=== PATIENT | female | born 1995 | race Caucasian/White ===

== ENCOUNTER 2017-12-20 11:38 | Emergency (ER) | payer OTHER ==
[2017-12-20 11:48] VITALS: BMI 38.0
--- NOTE | 2017-12-20 12:57 | PDOC ---
History of Present Illness - General Chief Complaint: Vaginal Bleeding Stated Complaint: VAGINAL BLEEDING (12 WKS ) Time Seen by Provider: 12/20/17 12:53 History Source: Patient - History of Present Illness Timing/Duration: reports: other (yesterday) Past History - Past Medical History Allergies/Adverse Reactions: Allergies Allergy/AdvReac Type Severity Reaction Status Date / Time No Known Drug Allergies Allergy Mild Verified 12/20/17 11:48 seafood Allergy Intermediate Itching Uncoded 12/20/17 11:48 beans AdvReac Mild itching Uncoded 12/20/17 11:48 and body rash Home Medications: Ambulatory Orders Acetaminophen [Tylenol .Regular Strength -] 650 mg PO Q3H PRN #0 tablet Ferrous Sulfate [Feosol] 325 mg PO BID ud 04/02/15 Ibuprofen [Motrin -] 200 mg PO Q4H PRN #0 tablet 04/02/15 Vitamins (Sjr) - 1 tab PO DAILY tablet 04/02/15 95/Iron Fum/Folic/Dha [ + Dha Combo Pack] 1 each PO DAILY #30 combo..pkg 12/06/17 Asthma: No Cancer: No Cardiac Disorders: No COPD: No Diabetes: No HTN: No Seizures: No Thyroid Disease: No - Suicide/Smoking/Psychosocial Hx Smoking History: Never smoked Have you smoked in the past 12 months: No Hx Alcohol Use: No Drug/Substance Use Hx: No Substance Use Type: None Hx Substance Use Treatment: No Review of Systems - Review of Systems Constitutional: No: Fever ABD/GI: No: Nausea, Vomiting, Abdominal cramping : No: Dysuria, Flank Pain, Hematuria *Physical Exam - Vital Signs Last Vital Signs Temp Pulse Resp BP Pulse Ox 98.2 F 90 18 141/66 99 12/20/17 11:45 12/20/17 11:45 12/20/17 11:45 12/20/17 11:45 12/20/17 11:45 - Physical Exam General Appearance: Yes: Appropriately Dressed. No: Apparent Distress Neck: positive: Supple Respiratory/Chest: negative: Respiratory Distress Female Pelvic Exam: positive: normal external exam, cervical os closed, normal adnexa, other (trace light pinck discharge coming from os). negative: adnexal tenderness Gastrointestinal/Abdominal: positive: Soft. negative: Tender Musculoskeletal: negative: CVA Tenderness Integumentary: positive: Dry, Warm Neurologic: positive: Fully Oriented, Alert, Normal Mood/Affect Medical Decision Making - Medical Decision Making 12/20/17 12:56 22-year-old female, , ~ 12 weeks by dates, here with vaginal bleeding. Of note, patient was seen in ED 12/06 for abd pain and had US done revealing IUP ~ 10 w 4 d w/ beta >37K. O+. Patient states she noticed vaginal bleeding only on wiping since yesterday, otherwise no blood on sanitary napkin. No acute abdominal pain, dysuria, nausea, vomiting, fever or chills. Scheduled for first appointment tomorrow See exam 1st trimester vag bleed in confirmed IUP Stable w/ closed os and trace pink discharge -trend beta (~37K 12/06/17) -US -ua 12/20/17 15:59 Beta ~37, 800 K today, was ~37,900 on 12/06. Ultrasound demonstrates IUP at about 13 weeks with cardiac activity and possible placenta previa. UA with 1+ leuk esterase and 2 WBCs. Of note, urine culture 12/06 with no growth. Patient has no dysuria at this time. Will hold off on antibiotics. Patient given copy of labs and ultrasound report to take with her to her first appointment in the a.m. *DC/Admit/Observation/Transfer Diagnosis at time of Disposition: First-trimester bleeding - Discharge Dispostion Disposition: HOME Condition at time of disposition: Good - Referrals - Patient Instructions Additional Instructions: Your beta hCG today is about 37,000, about the same as it was on December 06 However your ultrasound reveals an intrauterine at about 13 weeks with cardiac activity. You are RH + and did not need rhogam Please follow-up with your OB appointment tomorrow as already scheduled - Post Discharge Activity
[2017-12-20 14:18] LABS: URINE APPEARANCE SLCLOUDY; URINE BILIRUBIN NEGATIVE (<2.0 mg/dL); URINE COLOR DKYELLOW; URINE GLUCOSE (UA) NEGATIVE (NEGATIVE); URINE KETONE NEGATIVE (NEGATIVE); URINE NITRITE NEGATIVE (NEGATIVE); URINE PROTEIN NEGATIVE (NEGATIVE)
[2017-12-20 14:21] LABS: URINE LEUK ESTERASE 1+ (NEGATIVE)
[2017-12-20 14:37] LABS: EPI CELLS FEW /HPF (FEW); URINE MUCUS RARE
--- NOTE | 2017-12-20 15:08 | PDOC ---
*Physical Exam - Vital Signs Last Vital Signs Temp Pulse Resp BP Pulse Ox 98.2 F 90 18 141/66 99 12/20/17 11:45 12/20/17 11:45 12/20/17 11:45 12/20/17 11:45 12/20/17 11:45 - Physical Exam Comments: 12/20/17 15:08 The patient was examined by [JOHNNY Gutierrez] under my direct supervision. I personally evaluated the patient. I concur with the above findings and the plan of care. ED Treatment Course - ADDITIONAL ORDERS Additional order review: Laboratory Results 12/20/17 12/20/17 12/20/17 14:03 13:21 13:21 Beta HCG, Quant 59256.2 Urine Color Dkyellow Cancelled Urine Appearance Slcloudy Cancelled Urine pH 6.0 Cancelled Ur Specific [place] 1.020 Cancelled Urine Protein Negative Cancelled Urine Glucose (UA) Negative Cancelled Urine Ketones Negative Cancelled Urine Blood 2+ H Cancelled Urine Nitrite Negative Cancelled Urine Bilirubin Negative Cancelled Urine Urobilinogen 2.0 H Cancelled Ur Leukocyte Esterase 1+ H Cancelled Urine WBC (Auto) 2 Urine RBC (Auto) 1 Ur Epithelial Cells Few Urine Mucus Rare - RADIOLOGY Radiology Studies Ordered: Category Date Time Status TRANSVAGINAL ULTRASOUND US [US] Routine Ultrasound 12/20/17 Taken
[2017-12-20 15:53] VITALS: BP 129/78; PULSE 70; TEMP 97.9
== END 2017-12-20 16:12 | disposition home or self-care (01) ==
LOC: JER 11:38
DX: O26.891 Other specified pregnancy related conditions, first trimester (principal); O20.8 Other hemorrhage in early pregnancy; Z3A.12 12 weeks gestation of pregnancy
CPT/HCPCS: 36415; 76801-TC; 76830-TC; 81003; 81015; 84702; 99281-25

== ENCOUNTER 2018-11-28 00:26 | Emergency (ER) | payer OTHER ==
[2018-11-28 01:33] VITALS: BMI 38.0
[2018-11-28] MEDS ORDERED: ACETAMINOPHEN 1000 MG/100 ML VIAL (NON FORMULARY) IVPB ONE (02:32)
[2018-11-28] MEDS ORDERED: SODIUM CHLORIDE 1,000 ML IV STA ×2 (02:32→04:24)
[2018-11-28] MEDS ORDERED: FAMOTIDINE 20 MG/50 ML IVPB 20 MG/50 ML MG IVPB ONE ×2 (02:35→03:45)
[2018-11-28] MEDS ORDERED: ONDANSETRON 4 MG/2 ML VIAL IVPB ONE (02:35)
[2018-11-28 03:39] LABS: BASO % 0.1 % (0-2.0); HEMATOCRIT 36.4 % (32.4-45.2); HEMOGLOBIN 12.2 GM/dL (10.7-15.3); LYMPH % 14.8 % (8-40); MCH 26.5 pg (25.7-33.7); MCHC 33.5 g/dl (32.0-36.0); MEAN CELL VOLUME 79.1 fl (80-96); MEAN PLT VOLUME 10.4 fl (7.5-11.1); MONO % 6.5 % (3.8-10.2); NEUT % 78.6 % (42.8-82.8); PLATELET COUNT 186 K/MM3 (134-434); RBC 4.61 M/mm3 (3.60-5.2); RDW 15.8 % (11.6-15.6); WHITE BLOOD COUNT 5.5 K/mm3 (4.0-10.0)
[2018-11-28 03:43] LABS: EPI CELLS 6.7 /HPF (0-5/HPF); HYALINE CASTS 9 /lpf (0-8); URINE APPEARANCE CLEAR; URINE BACTERIA 122.9 /hpf (NEGATIVE); URINE BILIRUBIN NEGATIVE (NEGATIVE); URINE COLOR DK YELLOW; URINE GLUCOSE (UA) NEGATIVE (NEGATIVE); URINE KETONE NEGATIVE (NEGATIVE); URINE LEUK ESTERASE 1+ (NEGATIVE); URINE NITRITE NEGATIVE (NEGATIVE); URINE PROTEIN TRACE (NEGATIVE); URINE RBC 2 /hpf (0-4); URINE WBC 7 /hpf (0-5)
[2018-11-28] MEDS ORDERED: ACETAMINOPHEN INJECTION 100 ML IVPB ONE (03:44)
[2018-11-28] MEDS ORDERED: ONDANSETRON 4 MG/2 ML VIAL ONE (03:44)
[2018-11-28 04:02] LABS: ALBUMIN 3.6 g/dl (3.4-5.0); CALCIUM 8.7 mg/dL (8.5-10.1); CREATININE 0.8 mg/dL (0.55-1.3); POTASSIUM 3.2 mmol/L (3.5-5.1); TOT PROT 8.2 g/dl (6.4-8.2)
--- NOTE | 2018-11-28 04:06 | PDOC ---
History of Present Illness - General Stated Complaint: GENERALIZED PAIN APPOX 2 MONTHS Time Seen by Provider: 11/28/18 01:30 History Source: Patient Exam Limitations: No Limitations - History of Present Illness Initial Comments: 11/28/18 06:55 23yo F presenting to ED with complaints of 2d of generalized body aches, fever, abdominal pain, nausea, vomiting and dysuria. Pt states symptoms started on Monday. She had spotting and went to a hospital where she was told everything was normal and discharged home. Pt states that last week she went to a clinic and found out she was 2m by LMP and has US scheduled in two days. She states that she has generalized muscle aches, and R sided abdominal pain. She has been nauseous and vomiting since Monday. She has also had fevers and dysuria since Monday. Denies cough, chest pain, sob, sore throat, neck stiffness, diarrhea, constipation, bloody stools, syncope, sick contacts, recent travel. PMD: PMH: none PSH: none Allergies: nkda Social: denies Past History - Past Medical History Allergies/Adverse Reactions: Allergies Allergy/AdvReac Type Severity Reaction Status Date / Time No Known Drug Allergies Allergy Mild Verified 11/28/18 01:33 seafood Allergy Intermediate Itching Uncoded 11/28/18 01:33 Home Medications: Ambulatory Orders Vitamins (Sjr) - 1 tab PO DAILY tablet 04/02/15 Cephalexin Monohydrate [Keflex -] 500 mg PO BID #10 capsule 11/28/18 Asthma: No Cancer: No Cardiac Disorders: No COPD: No Diabetes: No HTN: No Seizures: No Thyroid Disease: No - Suicide/Smoking/Psychosocial Hx Smoking History: Never smoked Have you smoked in the past 12 months: No Information on smoking cessation initiated: No Hx Alcohol Use: No Drug/Substance Use Hx: No Substance Use Type: None Hx Substance Use Treatment: No Review of Systems - Review of Systems Constitutional: Yes: Chills, Fever, Weakness HEENTM: No: Symptoms Reported Respiratory: No: Cough, Shortness of Breath Cardiac (ROS): No: Chest Pain, Lightheadedness, Palpitations, Syncope ABD/GI: Yes: See HPI, Nausea, Vomiting, Abdominal cramping. No: Constipated, Diarrhea : Yes: Burning, Dysuria. No: Frequency, Hematuria Musculoskeletal: Yes: Muscle Pain Integumentary: No: Symptoms Reported Neurological: No: Symptoms reported *Physical Exam - Vital Signs Last Vital Signs Temp Pulse Resp BP Pulse Ox 101.4 F H 108 H 19 132/69 99 11/28/18 00:30 11/28/18 00:30 11/28/18 00:30 11/28/18 00:30 11/28/18 00:30 - Physical Exam General Appearance: Yes: Nourished, Appropriately Dressed. No: Apparent Distress HEENT: positive: EOMI, JACK, Normal ENT Inspection, Pharynx Normal Neck: positive: Trachea midline. negative: Tender, Lymphadenopathy (R), Lymphadenopathy (L) Respiratory/Chest: positive: Lungs Clear, Normal Breath Sounds. negative: Crackles, Rales, Stridor, Wheezing Cardiovascular: positive: Regular Rhythm, Regular Rate, S1, S2. negative: Edema , JVD, Murmur Vascular Pulses: Dorsalis-Pedis (R): 2+, Doralis-Pedis (L): 2+ Gastrointestinal/Abdominal: positive: Normal Bowel Sounds, Soft, Tenderness (RUQ ). negative: Hernia, Mass Musculoskeletal: negative: CVA Tenderness Extremity: positive: Normal Capillary Refill. negative: Swelling, Calf Tenderness, Erythema Integumentary: positive: Normal Color, Dry, Warm Neurologic: positive: space sciences director II-XII NML intact, Fully Oriented, Alert, Normal Mood/ Affect, Normal Response, Motor Strength 5/5 ED Treatment Course - LABORATORY CBC & Chemistry Diagram: 11/28/18 03:11 11/28/18 03:11 - ADDITIONAL ORDERS Additional order review: Laboratory Results 11/28/18 11/28/18 11/28/18 03:11 03:11 03:11 PTT (Actin FS) 34.5 Sodium 135 L Potassium 3.2 L Chloride 102 Carbon Dioxide 23 Anion Gap 11 BUN 7.0 Creatinine 0.8 Est GFR (CKD-EPI)AfAm 121.29 Est GFR (CKD-EPI)NonAf 104.65 Random Glucose 106 Calcium 8.7 Total Bilirubin 1.0 AST 20 ALT 24 Alkaline Phosphatase 69 Troponin I Total Protein 8.2 Albumin 3.6 Urine Color Dk yellow Urine Appearance Clear Urine pH 6.0 Ur Specific [place] 1.011 Urine Protein Trace Urine Glucose (UA) Negative Urine Ketones Negative Urine Blood Negative Urine Nitrite Negative Urine Bilirubin Negative Urine Urobilinogen 1.0 Ur Leukocyte Esterase 1+ H Urine WBC (Auto) 7 Urine RBC (Auto) 2 Urine Casts (Auto) 9 U Epithel Cells (Auto) 6.7 Urine Bacteria (Auto) 122.9 11/28/18 03:11 PTT (Actin FS) Sodium Potassium Chloride Carbon Dioxide Anion Gap BUN Creatinine Est GFR (CKD-EPI)AfAm Est GFR (CKD-EPI)NonAf Random Glucose Calcium Total Bilirubin AST ALT Alkaline Phosphatase Troponin I < 0.02 Total Protein Albumin Urine Color Urine Appearance Urine pH Ur Specific [place] Urine Protein Urine Glucose (UA) Urine Ketones Urine Blood Urine Nitrite Urine Bilirubin Urine Urobilinogen Ur Leukocyte Esterase Urine WBC (Auto) Urine RBC (Auto) Urine Casts (Auto) U Epithel Cells (Auto) Urine Bacteria (Auto) 11/28/18 03:11 RBC 4.61 MCV 79.1 L MCHC 33.5 RDW 15.8 H D MPV 10.4 Neutrophils % 78.6 D Lymphocytes % 14.8 D Monocytes % 6.5 Eosinophils % 0.0 D Basophils % 0.1 - Medications Given in the ED: ED Medications Discontinued Medications Generic Name Dose Route Start Last Admin Trade Name Freq PRN Reason Stop Dose Admin Acetaminophen 1,000 mg 11/28/18 02:32 11/28/18 03:53 Ofirmev Injection - IVPB 11/28/18 02:33 1,000 mg ONCE ONE Administration Sodium Chloride 1,000 mls @ 1,000 mls/hr 11/28/18 02:32 11/28/18 03:53 Normal Saline - IV 11/28/18 03:31 1,000 mls/hr ASDIR STA Administration Famotidine/Sodium Chloride 20 mg in 50 mls @ 100 mls/hr 11/28/18 02:35 03:53 Pepcid 20 Mg Premixed Ivpb - IVPB 11/28/18 03:04 100 mls/hr ONCE ONE Administration Ondansetron HCl 4 mg 11/28/18 02:35 11/28/18 03:53 Zofran Injection IVPB 11/28/18 02:36 4 mg ONCE ONE Administration Medical Decision Making - Medical Decision Making 11/28/18 07:00 23yo F presenting to ED with complaints of 2d of generalized body aches, fever, abdominal pain, nausea, vomiting and dysuria. Pt states symptoms started on Monday. She had spotting and went to a hospital where she was told everything was normal and discharged home. Pt states that last week she went to a clinic and found out she was 2m by LMP and has US scheduled in two days. She states that she has generalized muscle aches, and R sided abdominal pain. She has been nauseous and vomiting since Monday. She has also had fevers and dysuria since Monday. Denies cough, chest pain, sob, sore throat, neck stiffness, diarrhea, constipation, bloody stools, syncope, sick contacts, recent travel. Vitals: febrile, tachcyardic PE: RUQ tenderness. no rebound. lungs clear, normal heart sounds. congested. Ddx includes but not limited to viral illness, uti/pyelo, cholecystitis, appendicitis, nephrolithaisis. pt has not had formal us. will perform pocus and order us for and ruq sono labs, cultures, ua, ucx, ekg, fluids, zofran, pepcid. labs show lac of 2.3. pt getting fluids. ua shows bacteruria. will treat with keflex pocus shows FHR at 164. Likely viral illness. pending morning sono. Concern for pyelo;will add ceftriaxone. Rx sent to pharmacy. Signed out to morning team. *DC/Admit/Observation/Transfer Diagnosis at time of Disposition: Fever Qualifiers: Fever type: unspecified Qualified Code(s): R50.9 - Fever, unspecified Qualifiers: Weeks of gestation: unspecified Qualified Code(s): Z34.90 - Encounter for supervision of normal , unspecified, unspecified trimester - Referrals Referrals: ON STAFF,NOT [Primary Care Provider] - - Patient Instructions - Post Discharge Activity
--- NOTE | 2018-11-28 04:11 | PDOC ---
Documentation entered by Carter Hernández SCRIBE, acting as scribe for Meche Donohue DO. Meche Donohue DO: This documentation has been prepared by the Edgar larry Elijah, SCRIBE, under my direction and personally reviewed by me in its entirety. I confirm that the documentation accurately reflects all work , treatment, procedures, and medical decision making performed by me. Attending Attestation - Resident Resident Name: Lisa Fuentes - ED Attending Attestation I have performed the following: I have examined & evaluated the patient, The case was reviewed & discussed with the resident, I agree w/resident's findings & plan - HPI HPI: 11/28/18 02:41 Patient is a 23 year old female with a significant past medical history of S/D who presents to the ED Fever, Body aches and Urinary symptoms. Patient was seen on Monday, discharged but her symptoms remained prompting the visit to the ED. Allergies: Seafood, Beans - Physicial Exam PE: 11/28/18 02:42 Agree with Resident's Exam. - Medical Decision Making 11/28/18 04:09 23-year-old female with right-sided abdominal pain Approximately 2 months gestational age Patient will be held for pelvic and right upper quadrant ultrasound in the morning Case will be signed out to
[2018-11-28 04:19] LABS: INR 1.24 (0.83-1.09); PROTHROMBIN TIME (PATIENT) 14.7 SEC (9.7-13.0)
[2018-11-28] MEDS ORDERED: CEPHALEXIN MONOHYDRATE 500 MG CAPSULE (UD) PO ONE (05:23)
[2018-11-28] MEDS ORDERED: CEPHALEXIN MONOHYDRATE 500 MG CAPSULE (UD) ONE (05:38)
[2018-11-28] MEDS ORDERED: CEFTRIAXONE 1 GM in DEXTROSE 5%-WATER - 100 ML IVPB ONE (07:05)
[2018-11-28] MEDS ORDERED: CEFTRIAXONE 0 GM/0 ML BAG ONE (08:03)
[2018-11-28] MEDS ORDERED: CEFTRIAXONE 1 GM/50 ML BAG ONE (08:17)
--- NOTE | 2018-11-28 08:36 | PDOC ---
*Physical Exam - Vital Signs Last Vital Signs Temp Pulse Resp BP Pulse Ox 101.4 F H 108 H 19 132/69 99 11/28/18 00:30 11/28/18 00:30 11/28/18 00:30 11/28/18 00:30 11/28/18 00:30 - Physical Exam Comments: 11/28/18 08:33 Patient endorsed to me by Dr. danielson. Patient is a 23-year-old female, , at 8 weeks gestation by LMP who presented with fever, generalized weakness, and suprapubic and right upper quadrant abdominal pain. CBC is within normal limit. CMP reveals no significant LFT or renal abnormalities. UA reveals 7 WBCs per high-power field. Urine culture obtained. IV ceftriaxone administered for suspected UTI. Transvaginal and right upper quadrant ultrasound obtained. Awaiting results. On my evaluation, patient has no abdominal tenderness, no CVA tenderness, is resting comfortably. Patient reports that she suffers from seasonal ALLERGIES and has no upper respiratory symptoms at this time outside of mild nasal congestion. 11/28/18 09:41 Patient reassessed. Patient is resting comfortably, afebrile, well-appearing, symptom-free. -related REVEALS AN IUP AT 13 WEEKS 5 DAYS WITH FH. RIGHT UPPER QUADRANT ULTRASOUND REVEALS HEPATOMEGALY LIKELY RELATED TO FATTY LIVER, NO EVIDENCE OF CHOLELITHIASIS OR HYDRONEPHROSIS. Pyelonephritis highly unlikely at this time. Will discharge with instructions to hydrate, take Keflex as instructed and return immediately for worsening symptoms. ED Treatment Course - LABORATORY CBC & Chemistry Diagram: 11/28/18 03:11 11/28/18 03:11 - ADDITIONAL ORDERS Additional order review: Laboratory Results 11/28/18 11/28/18 11/28/18 03:15 03:11 03:11 PT with INR 14.70 H INR 1.24 H PTT (Actin FS) Sodium Potassium Chloride Carbon Dioxide Anion Gap BUN Creatinine Est GFR (CKD-EPI)AfAm Est GFR (CKD-EPI)NonAf Random Glucose Lactic Acid 2.3 H* Calcium Total Bilirubin AST ALT Alkaline Phosphatase Troponin I Total Protein Albumin Lipase Beta HCG, Quant Urine Color Dk yellow Urine Appearance Clear Urine pH 6.0 Ur Specific [place] 1.011 Urine Protein Trace Urine Glucose (UA) Negative Urine Ketones Negative Urine Blood Negative Urine Nitrite Negative Urine Bilirubin Negative Urine Urobilinogen 1.0 Ur Leukocyte Esterase 1+ H Urine WBC (Auto) 7 Urine RBC (Auto) 2 Urine Casts (Auto) 9 U Epithel Cells (Auto) 6.7 Urine Bacteria (Auto) 122.9 11/28/18 11/28/18 11/28/18 03:11 03:11 03:11 PT with INR INR PTT (Actin FS) 34.5 Sodium 135 L Potassium 3.2 L Chloride 102 Carbon Dioxide 23 Anion Gap 11 BUN 7.0 Creatinine 0.8 Est GFR (CKD-EPI)AfAm 121.29 Est GFR (CKD-EPI)NonAf 104.65 Random Glucose 106 Lactic Acid Calcium 8.7 Total Bilirubin 1.0 AST 20 ALT 24 Alkaline Phosphatase 69 Troponin I < 0.02 Total Protein 8.2 Albumin 3.6 Lipase 128 Beta HCG, Quant 83965.1 Urine Color Urine Appearance Urine pH Ur Specific [place] Urine Protein Urine Glucose (UA) Urine Ketones Urine Blood Urine Nitrite Urine Bilirubin Urine Urobilinogen Ur Leukocyte Esterase Urine WBC (Auto) Urine RBC (Auto) Urine Casts (Auto) U Epithel Cells (Auto) Urine Bacteria (Auto) 11/28/18 03:11 RBC 4.61 MCV 79.1 L MCHC 33.5 RDW 15.8 H D MPV 10.4 Neutrophils % 78.6 D Lymphocytes % 14.8 D Monocytes % 6.5 Eosinophils % 0.0 D Basophils % 0.1 - Medications Given in the ED: ED Medications Discontinued Medications Generic Name Dose Route Start Last Admin Trade Name Freq PRN Reason Stop Dose Admin Acetaminophen 1,000 mg 11/28/18 02:32 11/28/18 03:53 Ofirmev Injection - IVPB 11/28/18 02:33 1,000 mg ONCE ONE Administration Cephalexin HCl 500 mg 11/28/18 05:23 11/28/18 05:41 Keflex - PO 11/28/18 05:24 500 mg ONCE ONE Administration Sodium Chloride 1,000 mls @ 1,000 mls/hr 11/28/18 02:32 11/28/18 03:53 Normal Saline - IV 11/28/18 03:31 1,000 mls/hr ASDIR STA Administration Famotidine/Sodium Chloride 20 mg in 50 mls @ 100 mls/hr 11/28/18 02:35 03:53 Pepcid 20 Mg Premixed Ivpb - IVPB 11/28/18 03:04 100 mls/hr ONCE ONE Administration Sodium Chloride 1,000 mls @ 1,000 mls/hr 11/28/18 04:24 11/28/18 05:02 Normal Saline - IV 11/28/18 05:23 1,000 mls/hr ASDIR STA Administration Ceftriaxone Sodium 1 gm/ 100 mls @ 200 mls/hr 11/28/18 07:05 11/28/18 08:00 Dextrose IVPB 11/28/18 07:34 200 mls/hr ONCE ONE Administration Protocol Ondansetron HCl 4 mg 11/28/18 02:35 11/28/18 03:53 Zofran Injection IVPB 11/28/18 02:36 4 mg ONCE ONE Administration *DC/Admit/Observation/Transfer Diagnosis at time of Disposition: Fever Qualifiers: Fever type: unspecified Qualified Code(s): R50.9 - Fever, unspecified Qualifiers: Weeks of gestation: unspecified Qualified Code(s): Z34.90 - Encounter for supervision of normal , unspecified, unspecified trimester Urinary tract infection Qualifiers: Urinary tract infection type: site unspecified Hematuria presence: without hematuria Qualified Code(s): N39.0 - Urinary tract infection, site not specified - Discharge Dispostion Disposition: HOME Condition at time of disposition: Stable - Prescriptions Prescriptions: Cephalexin Monohydrate [Keflex -] 500 mg PO BID #10 capsule - Referrals Referrals: ON STAFF,NOT [Primary Care Provider] - Court Jasso MD [Staff Physician] - - Patient Instructions Printed Discharge Instructions: DI for Fever (Symptom) -- Adult, Vaginal Bleeding During , DI for Urinary Tract Infection (UTI) - Post Discharge Activity
[2018-11-28 09:35] VITALS: BP 100/52; PULSE 73; TEMP 97.6
[2018-11-28] MEDS ORDERED: POTASSIUM CHLORIDE TABS 20 MEQ TABLET.ER (FP) PO ONE (09:40)
--- NOTE | 2018-11-28 14:39 | EKG ---
Test Reason : Blood Pressure : / mmHG Vent. Rate : 093 BPM Atrial Rate : 093 BPM P-R Int : 140 ms QRS Dur : 104 ms QT Int : 356 ms P-R-T Axes : 002 018 022 degrees QTc Int : 442 ms NORMAL SINUS RHYTHM NORMAL ECG NO PREVIOUS ECGS AVAILABLE Confirmed by JOSÉ HURTADO, ANN-MARIE ([id number]) on 11/28/2018 2:38:42 PM Referred By: DANII Confirmed By:ANN-MARIE KUMAR MD
== END 2018-11-28 10:06 | disposition home or self-care (01) ==
LOC: JER 00:26
PROC: 3E03329 Introduction of Other Anti-infective into Peripheral Vein, Percutaneous Approach (ICD-10-PCS; principal; 2018-11-28)
PROC: 3E033NZ Introduction of Analgesics, Hypnotics, Sedatives into Peripheral Vein, Percutaneous Approach (ICD-10-PCS; 2018-11-28)
PROC: 3E0337Z Introduction of Electrolytic and Water Balance Substance into Peripheral Vein, Percutaneous Approach (ICD-10-PCS; 2018-11-28)
PROC: 3E033GC Introduction of Other Therapeutic Substance into Peripheral Vein, Percutaneous Approach (ICD-10-PCS; 2018-11-28)
DX: Z34.90 Encounter for supervision of normal pregnancy, unspecified, unspecified trimester (principal); R50.9 Fever, unspecified; R00.0 Tachycardia, unspecified
CPT/HCPCS: 36415; 76700-TC; 76801-TC; 80053; 81003; 83605; 83690; 84484; 84702; 85025; 85610; 85730; 87040; 87077; 87086; 93005; 93010; 99283-25; J0131; J7030

== ENCOUNTER 2018-11-28 19:56 | Inpatient (IN) | payer OTHER ==
[2018-11-28] MEDS ORDERED: ACETAMINOPHEN 500 MG TABLET (FP) PO ONE (20:03)
--- NOTE | 2018-11-28 20:03 | PDOC ---
Rapid Medical Evaluation Time Seen by Provider: 11/28/18 20:01 Medical Evaluation: Allergies Allergy/AdvReac Type Severity Reaction Status Date / Time No Known Drug Allergies Allergy Mild Verified 11/28/18 01:33 seafood Allergy Intermediate Itching Uncoded 11/28/18 01:33 11/28/18 20:01 HPI: 12- 14 weeks gravid with fevers, chills, and vomiting PE: Alert in wheel chair ORDERS: Septic work up B quant Discharge Disposition - Diagnosis Fever - Referrals - Patient Instructions - Post Discharge Activity
[2018-11-28] MEDS ORDERED: ACETAMINOPHEN 1000 MG/100 ML VIAL (NON FORMULARY) IVPB ONE (20:04)
[2018-11-28] MEDS ORDERED: SODIUM CHLORIDE 1,000 ML IV STA ×3 (20:19→23:49)
[2018-11-28] MEDS ORDERED: ONDANSETRON 4 MG/2 ML VIAL IVPB ONE (20:19)
[2018-11-28] MEDS ORDERED: FAMOTIDINE 20 MG/50 ML IVPB 20 MG/50 ML MG IVPB ONE ×2 (20:31→23:05)
--- NOTE | 2018-11-28 20:42 | PDOC ---
History of Present Illness - General Chief Complaint: Pain Stated Complaint: 14 WKS /FEVER/VOMITING Time Seen by Provider: 11/28/18 20:01 History Source: Patient Exam Limitations: No Limitations - History of Present Illness Initial Comments: 11/28/18 20:35 23yo F at 13w by sonogram BIBA for fever and vomiting. Patient was seen here yesterday with UTI, improved symptomatically and given antibiotics to take for UTI. She went home and took a nap. Patient states she woke up at 4pm and went to go to the pharmacy to get her medications. She was told to eat something prior to taking the medication. Patient states that when she went to go eat she started vomiting, felt like someone punched her in the stomach, developed fever, headache and felt weak. She was feeling fine prior to eating. She had a normal bowel movement. She did not notice any spotting or leakage of fluid. She endorses fever, chills, abdominal pain, headache, back pain and she says her legs feel weak. PMD: Jung PMH: none PSH: none Allergies: nkda Past History - Past Medical History Allergies/Adverse Reactions: Allergies Allergy/AdvReac Type Severity Reaction Status Date / Time No Known Drug Allergies Allergy Mild Verified 11/28/18 20:24 seafood Allergy Intermediate Itching Uncoded 11/28/18 20:24 Home Medications: Ambulatory Orders Vitamins (Sjr) - 1 tab PO DAILY tablet 04/02/15 Cephalexin Monohydrate [Keflex -] 500 mg PO BID #10 capsule 11/28/18 Asthma: No Cancer: No Cardiac Disorders: No COPD: No Diabetes: No HTN: No Seizures: No Thyroid Disease: No - Suicide/Smoking/Psychosocial Hx Smoking History: Never smoked Have you smoked in the past 12 months: No Information on smoking cessation initiated: No Hx Alcohol Use: No Drug/Substance Use Hx: No Substance Use Type: None Hx Substance Use Treatment: No Review of Systems - Review of Systems Constitutional: Yes: Chills, Fever, Weakness HEENTM: Yes: Nose Congestion. No: Symptoms Reported Respiratory: No: Cough, Shortness of Breath, Productive cough Cardiac (ROS): No: Chest Pain, Lightheadedness ABD/GI: Yes: See HPI, Nausea, Vomiting, Abdominal cramping : Yes: Flank Pain. No: Burning, Dysuria, Frequency Musculoskeletal: Yes: See HPI Integumentary: No: Symptoms Reported Neurological: Yes: Headache. No: Numbness, Tingling, Weakness, Ataxia, Dizziness *Physical Exam - Vital Signs Last Vital Signs Temp Pulse Resp BP Pulse Ox 104.7 F H 155 H 25 H 101/62 100 11/28/18 20:01 11/28/18 20:01 11/28/18 20:01 11/28/18 20:01 11/28/18 20:01 - Physical Exam General Appearance: Yes: Severe Distress, Other (diaphoretic) HEENT: positive: EOMI, JACK, Pharynx Normal Neck: positive: Trachea midline, Supple. negative: Lymphadenopathy (R), Lymphadenopathy (L) Respiratory/Chest: positive: Lungs Clear, Normal Breath Sounds. negative: Crackles, Rales, Rhonchi, Stridor, Wheezing Cardiovascular: positive: Regular Rhythm, S1, S2, Tachycardia. negative: Edema , JVD, Murmur Vascular Pulses: Dorsalis-Pedis (R): 2+, Doralis-Pedis (L): 2+ Female Pelvic Exam: negative: CMT, adnexal tenderness Gastrointestinal/Abdominal: positive: Normal Bowel Sounds, Soft, Tenderness ( suprapubic). negative: Tender, Distended, Guarding, Rebound Musculoskeletal: positive: CVA Tenderness (R). negative: CVA Tenderness (L), Vertebral Tenderness Extremity: positive: Normal Capillary Refill. 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 Patient was seen here yesterday with normal workup, improved symptomatically and given antibiotics to take for asymptomatic bacteruria. She went home and took a nap. Patient states she woke up at 4pm and went to go to the pharmacy to get her medications. She was told to eat something prior to taking the medication. Patient states that when she went to go eat she started vomiting, felt like someone punched her in the stomach, developed fever, headache and felt weak. She was feeling fine prior to eating. She had a normal bowel movement. She did not notice any spotting or leakage of fluid. She endorses fever, chills, abdominal pain, chest pain, headache, back pain and she says her legs feel weak. Vitals: febrile, tachcyardic, saturating well on RA PE: diaphoretic, no meningeal signs, soft abdomen, lungs clear. negative brudzinski, negative kernig. no cmt or adnexal tenderness ddx includes but not limited to pyelonephritis, gastritis, appendicitis, meningitis, TOA/PID low suspicion for appendicitis given patient does not have rlq pain. seems to be suprapubic. low suspicion for meningitis given no meningeal signs. sepsis w/u started. iv fluids. WBC 2.7. no neutrophil count. labs wnl. normal kidney function. ua negative however pt was given antibiotics. pt has R flank tenderness and suprapubic pain. lactic elevated, pt getting fluids; 3L ordered in total -aztreonam, cefepime certified alcohol and drug counselor consulted, will follow patient. admitted and accpeted by hospitalist *DC/Admit/Observation/Transfer Diagnosis at time of Disposition: Fever Qualifiers: Fever type: unspecified Qualified Code(s): R50.9 - Fever, unspecified Pyelonephritis affecting Qualifiers: Trimester: second trimester Qualified Code(s): O23.02 - Infections of kidney in , second trimester - Discharge Dispostion Condition at time of disposition: Stable - Referrals - Patient Instructions - Post Discharge Activity
[2018-11-28] MEDS ORDERED: ACETAMINOPHEN INJECTION 100 ML IVPB ONE (20:44)
[2018-11-28] MEDS ORDERED: ONDANSETRON 4 MG/2 ML VIAL ONE (20:44)
[2018-11-28 21:21] LABS: BASO % 0.5 % (0-2.0); EOS % 0.2 % (0-4.5); HEMATOCRIT 36.2 % (32.4-45.2); HEMOGLOBIN 12.3 GM/dL (10.7-15.3); LYMPH % 23.5 % (8-40); MCH 26.7 pg (25.7-33.7); MCHC 33.8 g/dl (32.0-36.0); MEAN CELL VOLUME 78.9 fl (80-96); MEAN PLT VOLUME 10.2 fl (7.5-11.1); MONO % 2.1 % (3.8-10.2); NEUT % 73.7 % (42.8-82.8); PLATELET COUNT 158 K/MM3 (134-434); RBC 4.59 M/mm3 (3.60-5.2); RDW 16.4 % (11.6-15.6); WHITE BLOOD COUNT 2.7 K/mm3 (4.0-10.0)
[2018-11-28 21:38] LABS: ALBUMIN 3.7 g/dl (3.4-5.0); BLOOD UREA NITROGEN 6.2 mg/dL (7-18); CALCIUM 8.6 mg/dL (8.5-10.1); CREATININE 1.1 mg/dL (0.55-1.3); POTASSIUM 3.4 mmol/L (3.5-5.1); TOT PROT 8.1 g/dl (6.4-8.2)
[2018-11-28 21:40] LABS: INR 1.21 (0.83-1.09); PROTHROMBIN TIME (PATIENT) 14.3 SEC (9.7-13.0)
[2018-11-28 21:43] LABS: ACTIVATED PTT 26.9 SECONDS (25.2-36.5)
[2018-11-28 23:17] LABS: EPI CELLS 1.6 /HPF (0-5/HPF); HYALINE CASTS 6 /lpf (0-8); PH,URINE 5.5 (5.0-8.0); URINE APPEARANCE CLEAR; URINE BACTERIA 3.4 /hpf (NEGATIVE); URINE BILIRUBIN 1+ (NEGATIVE); URINE COLOR DK YELLOW; URINE GLUCOSE (UA) NEGATIVE (NEGATIVE); URINE KETONE TRACE (NEGATIVE); URINE LEUK ESTERASE NEGATIVE (NEGATIVE); URINE NITRITE NEGATIVE (NEGATIVE); URINE PROTEIN 2+ (NEGATIVE); URINE RBC 1 /hpf (0-4); URINE WBC 2 /hpf (0-5)
[2018-11-28] MEDS ORDERED: LACTATED RINGERS SOLUTION 1000 ML INFUS.BAG IV ONE (23:53)
[2018-11-29] MEDS ORDERED: AZTREONAM 1 GM VIAL (RESTRICTED TO ID) IVPB STA (00:22)
--- NOTE | 2018-11-29 00:26 | PDOC ---
Documentation entered by Rajeev Gates SCRIBE, acting as scribe for Carmen Garcia MD. Carmen Garcia MD: This documentation has been prepared by the Kody larry Daniel, SCRIBE, under my direction and personally reviewed by me in its entirety. I confirm that the documentation accurately reflects all work, treatment, procedures, and medical decision making performed by me. Attending Attestation - Resident Resident Name: GinaLisa - ED Attending Attestation I have performed the following: I have examined & evaluated the patient, The case was reviewed & discussed with the resident, I agree w/resident's findings & plan, Exceptions are as noted - HPI HPI: 11/28/18 21:11 The patient is a 23 year old female with no past medical history brought in today by EMS for evaluation of fever and vomiting. The patient is 13 weeks by ultrasound. The patient reports that she has had fever, nausea, and vomiting since monday (11/25/18) and was seen at another hospital on Monday and discharged. Patient was seen yesterday here, diagnosed with UTI. She was given ceftriaxone and was discharged after her symptoms improved with keflex. She states she felt well until she tried to eat this afternoon when she began to feel nauseous, weak and developed chills. She also noted pain to her suprapubic area as well as aches in her back. On arrival to ED, pt febrile to 104.7, tachycardic to 155. She reported a headache initially that was global, gradual onset but has since resolved. Denies dizziness, focal weakness/numbness, neck pain, blurry vision, rashes. Denies cp, sob. REports some dark urine and dysuria yesterday that improved today. Denies LE edema, rashes, coughing, sore throat, diarrhea. Allergies: NKDA - Physicial Exam PE: 11/28/18 23:47 GENERAL: Awake, alert, and fully oriented, in no acute distress. Non toxic HEAD: No signs of trauma EYES: PERRLA, EOMI, sclera anicteric, conjunctiva clear ENT: Auricles normal inspection, hearing grossly normal, nares patent, oropharynx clear without exudates. Moist mucosa NECK: Normal ROM, supple, no lymphadenopathy, JVD, or masses. Negative kernigs and and brudzinski's signs. LUNGS: Breath sounds equal, clear to auscultation bilaterally. No wheezes, and no crackles HEART: Regular rate and rhythm, normal S1 and S2, no murmurs, rubs or gallops ABDOMEN: Soft, suprapubic ttp, no epigastric, RUQ, or lower quadrant ttp, normoactive bowel sounds. No guarding, no rebound. No masses. +R CVAT : Normal ext genitalia, normal closed cervix, no discharge, no midline or adnexal ttp EXTREMITIES: Normal range of motion, no edema. No cords, erythema, or tenderness NEUROLOGICAL: Normal speech, cranial nerves intact, equal strength and sensation b/l SKIN: Warm, Dry, normal turgor, no rashes or lesions noted. - Medical Decision Making 11/29/18 00:16 23yo F currently 13 weeks , treated for UTI yesterday and discharged, returns today with fever to 104.7, rigors, tachycardia 155, R CVAT concerning for possible pyelonephritis. Pt ordered for ceftriaxone IV 1G, aztreonem 2G, and 30cc/kg of IVF. UA today does not appear infected but pt received a dose of IV antibiotics yesterday Pt has hx of chlamydia at age 18, was treated. Currently only sexually active with 1 partner. No vaginal DC on exam or recently per pt. No CMT. GC/CT cultures pending Pt c/o frontal headache but no neck stiffness, AMS, and no meningismus to suggest meningitis. Headache has also resolved at this time No coughing, hypoxia, or abnormal lung sounds to suggest PNA +bandemia, added cefepime for broader coverage Unclear source at this time, possible pyelo or intraabdominal/LAST IRONER pathology RUQ US done yesterday with no biliary pathology noted, repeat LFTs today wnl Plan to obtain MRI to eval for intraabdominal pathology such as appendicits or TOA Consideration was made to transfer pt to high value associate service at [facility]. Per OB at [facility], pt is too early in her (13w+5d) for transfer. Case discussed with Dr. Jauregui who recommends admit to medicine, she will consult Pt has no PMD, hospitalist has been paged 11/29/18 01:[address] Prado, pt accepted for admission to Dr. Reyna's service Case discussed in detail with admitting physician including history, physical exam and ancillary studies. Admitting physician has assumed care for the patient, will follow all pending diagnostics and will complete the evaluation and treatment.
[2018-11-29] MEDS ORDERED: AZTREONAM 1 GM VIAL (RESTRICTED TO ID) ONE (01:28)
[2018-11-29] MEDS ORDERED: ACETAMINOPHEN 1000 MG/100 ML VIAL (NON FORMULARY) IVPB ONE ×2 (02:11→02:16)
[2018-11-29] MEDS ORDERED: CEFEPIME HCL/D5W 2 GM/50 ML BAG IVPB ONE (02:16)
--- NOTE | 2018-11-29 02:26 | PN ---
Teaching Attending Note Name of Resident: Kyra Prado ATTENDING PHYSICIAN STATEMENT I saw and evaluated the patient. I reviewed the resident's note and discussed the case with the resident. I agree with the resident's findings and plan as documented. SUBJECTIVE: Patient is a 23 year old woman -- with no significant PMH brought in today by EMS for evaluation of fever and vomiting. The patient is 13 weeks by ultrasound. The patient reports that she has had fever, nausea, and vomiting since Monday (11/25/18) and was seen at another hospital on Monday and discharged. Patient was seen yesterday here, diagnosed with UTI. She was given ceftriaxone and was discharged after her symptoms improved with keflex. She states she felt well until she tried to eat this afternoon when she began to feel nauseous, weak and developed chills. She also noted pain to her suprapubic area as well as aches in her back. She reported a headache initially that was global, gradual onset but has since resolved. Has associated diaphoresis. Denies dizziness, focal weakness/numbness, neck pain, blurry vision or rashes. Denies Chest pain, SOB and reports dark urine and dysuria. Denies leg edema, rashes, coughing, sore throat or diarrhea. OBJECTIVE: Alert Vital Signs Period Temp Pulse Resp BP Sys/Sebastian Pulse Ox Last 24 Hr 99.6 F-104.7 F 81-155 18-25 101-109/62-69 100-100 HEENT: No Jaundice, eye redness or discharge, PERRLA, EOMI. Normocephalic, atraumatic. External ears are normal and hearing is grossly intact. No nasal discharge. Neck: Supple, nontender. No palpable adenopathy or thyromegaly. No JVD Chest: Good effort. Clear to auscultation and percussion. Heart: Regular. No S3, rub or murmur Abdomen: Not distended, soft, nontender and no HSM. No rebound or guarding. Normal bowel sounds. Ext: Peripheral pulses intact. No leg edema. Skin: Warm and dry. No petechiae, rash or ecchymosis. Neuro: Alert. Oriented x3. CN 2-12 grossly intact. Sensation grossly intact in all four extremities and DTR are symmetric. Psych: Appropriate mood and affect. Good insight. Home Medications Medication Instructions Recorded Vitamins (Sjr) - 1 tab PO DAILY tablet 04/02/15 Cephalexin Monohydrate [Keflex -] 500 mg PO BID #10 capsule 11/28/18 Abnormal Lab Results 11/28/18 11/28/18 11/28/18 20:45 20:45 20:45 WBC 2.7 L MCV 78.9 L RDW 16.4 H Monocytes % 2.1 L PT with INR 14.30 H INR 1.21 H Potassium 3.4 L BUN 6.2 L Random Glucose 110 H Lactic Acid Creatine Kinase Urine Protein Urine Ketones Urine Bilirubin 11/28/18 11/28/18 11/28/18 20:45 20:45 20:45 WBC MCV RDW Monocytes % PT with INR INR Potassium BUN Random Glucose Lactic Acid 3.4 H* Creatine Kinase 275 H Urine Protein 2+ H Urine Ketones Trace H Urine Bilirubin 1+ H 11/29/18 00:30 WBC MCV RDW Monocytes % PT with INR INR Potassium BUN Random Glucose Lactic Acid 2.9 H* Creatine Kinase Urine Protein Urine Ketones Urine Bilirubin ASSESSMENT AND PLAN: 1. Sepsis due to pyelonephritis in a woman - Sepsis workup done. Sonogram showed a gravid uterus. Will treat with IV Rocephin, IV NS, trend lactic acid and consult ID and Obstetrics. Hypokalemia may be due to vomiting. Will check serum Mg+ and give IV KCL. Will get urine toxicology and check TFT. 2. Obesity Counseled on the risks associated with obesity. Will provide patient all the necessary assistance, counseling and positive reinforcement to facilitate weight loss after delivery. Consult patrol agent. 3. DVT prophylaxis - SCD and Early ambulation. 4. Advance directives - Full code
[2018-11-29] MEDS ORDERED: KCL 10 MEQ IVPB 10 MEQ/100 ML INFUS.BAG IVPB SCH (04:15)
--- NOTE | 2018-11-29 04:40 | HP ---
CHIEF COMPLAINT: vomit, fevers, headaches PCP: none HISTORY OF PRESENT ILLNESS: 23 y/o F, at 13 weeks , pmh of anxiety and panic attacks, presents to the ED c/o of fevers, chills, headaches, NBNB vomiting x6, back pain , sweating, sob and nonradiating, localized, reproducible, sharp, parasternal chest pain. Pt reports that her fevers, headaches, vomitting and suprapubic pain began on monday afternoon, for which she went to the hospital in [place]. They discharged her after blood results came back negative. However, pt stated her symptoms persisted. Therefore, on monday she came to [facility] ED, where she was treated for her symptoms and the UA came back showing UTI and she was discharged on Abx. Pt reports she was asymptomatic this morning, until her fevers, vomit and headaches returned s/p breakfast. She was then transported to the ED via ambulance, during the transport her chest pain and sob developed and persisted since. In the ED she vomited several times, remained febrile at 102F, tachy at 133 bpm and symptomatic. Currently, she is afebrile and asymptomatic w / the exception of vomiting, headache, back pain and sweating. denies changes in vision, numbness or tingling, diarrhea, dysuria, hematuria, melena, hematochezia, abdominal pain, suprapubic pain. ER course was notable for: (1) MRI abd/pelvis ordered in ED- cancelled by admitting team (2) Aztreonem and Cefepine (3) 3L NS at 100 Recent Travel: denies PAST MEDICAL HISTORY: hx of panic attacks, hx of anxiety PAST SURGICAL HISTORY: 2 previous natural deliveries at term, most recent delivered in june 2018 Social History: Smoking: denies Alcohol: denies Drugs: denies Family History: Mother- HTN Allergies No Known Drug Allergies Allergy (Mild, Verified 11/28/18 20:24) seafood Allergy (Intermediate, Uncoded 11/28/18 20:24) Itching swelling HOME MEDICATIONS: Home Medications Medication Instructions Recorded Vitamins (Sjr) - 1 tab PO DAILY tablet 04/02/15 Cephalexin Monohydrate [Keflex -] 500 mg PO BID #10 capsule 11/28/18 REVIEW OF SYSTEMS CONSTITUTIONAL: Admits: fever, chills, diaphoresis, generalized weakness, headaches Absent: malaise, loss of appetite, weight change HEENT: Absent: throat pain, difficulty swallowing, ear pain, eye pain, visual changes CARDIOVASCULAR: Admits: parasternal chest pain, irregular heart rate, Absent: syncope, palpitations, lightheadedness, peripheral edema RESPIRATORY: Admits: shortness of breath, dyspnea with exertion, Absent: cough, orthopnea, wheezing, hemoptysis GASTROINTESTINAL: Admits: nausea, vomiting, Absent: abdominal pain, abdominal distension, diarrhea, constipation, melena, hematochezia GENITOURINARY: Admits: flank pain, Absent: dysuria, frequency, urgency, hesitancy, hematuria, genital pain MUSCULOSKELETAL: Admits: back pain, Absent: myalgia, joint swelling, neck pain ENDOCRINE: Absent: unexplained weight loss, heat intolerance, cold intolerance NEUROLOGIC: Admits: headache, Absent: focal weakness or paresthesias, dizziness, seizure, mental status changes, bladder or bowel incontinence PSYCHIATRIC: Admits: anxiety, Absent: depression, PHYSICAL EXAMINATION Vital Signs - 24 hr 11/28/18 11/29/18 20:01 00:16 Temperature 104.7 F H 99.6 F Pulse Rate 155 H Pulse Rate [ 81 Left Radial] Respiratory 25 H 18 Rate Blood Pressure 101/62 Blood Pressure 109/69 [Left Arm] O2 Sat by Pulse 100 100 Oximetry (%) GENERAL: Awake, alert, and fully oriented, in no acute distress. HEAD: Normal with no signs of trauma. EYES: PERRLA, EOMI, anicteric conjunctiva EARS, NOSE, THROAT: oropharynx clear without exudates. Moist mucous membranes. NECK: supple without lymphadenopathy, JVD, or masses, no bruit LUNGS: CTAB, No wheezes, and no crackles. Mild Accessory muscle use. HEART: RRR, normal S1 and S2 without murmur, rub or gallop. ABDOMEN: Soft, nontender, not distended, normoactive bowel sounds, no guarding, no rebound, no masses. No hepatomegaly or splenomegaly. MUSCULOSKELETAL: Right CVA tenderness noted UPPER EXTREMITIES: 2+ pulses, warm, well-perfused. No cyanosis. No peripheral edema. LOWER EXTREMITIES: 2+ pulses, warm, well-perfused. No peripheral edema. PSYCHIATRIC: Cooperative. Good eye contact. Appropriate mood and affect. Laboratory Results - last 24 hr CBC, BMP 11/28/18:45 11/28/18 20:45 Lactate 3.4>2.9 ASSESSMENT/PLAN: 23 y/o F, at 13 weeks , presents to the ED c/o of fevers, chills, headaches, NBNB vomiting x6, back pain, sweating, sob and non-radiating, localized, reproducible, sharp, parasternal chest pain likely 2/2 to sepsis due to pyelo #Sepsis 2/2 to Pyelonephritis Blood Cx and Urine Cx ordered Fluids- NS 3L at 100 Urine toxicology ordered Start Ceftriaxone Consult ID to advise for coverage Chest pain- source unknown 2/2 to vomiting vs Anxiety vs Musculoskeletal pain vs PE monitor for now Low suspicion for PE Due to no imaging can be performed If clinical symptoms become more suspicious for PE order V/Q scan Metoclopromide if vomiting continues- safe in preg Pts pain symptoms improved after tylenol Continue Tylenol if symptomatic # 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 - New Patient This patient is new to me today: Yes Date on this admission: 12/04/18 - Critical Care Critical Care patient: No ATTENDING PHYSICIAN STATEMENT I saw and evaluated the patient. I reviewed the resident's note and discussed the case with the resident. I agree with the resident's findings and plan as documented. SUBJECTIVE: OBJECTIVE: ASSESSMENT AND PLAN:
[2018-11-29] MEDS ORDERED: CEFEPIME 2 GM/100 ML BAG IVPB ONE (05:07)
[2018-11-29] MEDS: SODIUM CHLORIDE 1,000 ML IV SCH ×2 (05:33→12:04)
[2018-11-29] MEDS ORDERED: KCL 10 MEQ IVPB 10 MEQ/100 ML INFUS.BAG IVPB ONE (05:36)
[2018-11-29 06:32] LABS: BASO % 0.1 % (0-2.0); HEMATOCRIT 35.5 % (32.4-45.2); HEMOGLOBIN 11.9 GM/dL (10.7-15.3); LYMPH % 6.4 % (8-40); MCH 26.7 pg (25.7-33.7); MCHC 33.6 g/dl (32.0-36.0); MEAN CELL VOLUME 79.6 fl (80-96); MEAN PLT VOLUME 10.7 fl (7.5-11.1); NEUT % 91.5 % (42.8-82.8); PLATELET COUNT 119 K/MM3 (134-434); RBC 4.46 M/mm3 (3.60-5.2); WHITE BLOOD COUNT 4.1 K/mm3 (4.0-10.0)
[2018-11-29] MEDS ORDERED: ACETAMINOPHEN 325 MG TABLET (FP) ONE (06:59)
[2018-11-29] MEDS: ACETAMINOPHEN 325 MG TABLET (FP) PO PRN ×2 (07:02→11:53)
[2018-11-29 07:17] LABS: ALBUMIN 2.8 g/dl (3.4-5.0); BILIRUBIN,TOTAL 1.9 mg/dL (0.2-1); BLOOD UREA NITROGEN 3.5 mg/dL (7-18); CALCIUM 7.1 mg/dL (8.5-10.1); CREATININE 0.7 mg/dL (0.55-1.3); MAGNESIUM 1.3 mg/dL (1.8-2.4); POTASSIUM 3.5 mmol/L (3.5-5.1); TOT PROT 6.6 g/dl (6.4-8.2)
--- NOTE | 2018-11-29 08:42 | PN ---
Progress Note, Physician History of Present Illness: 23 y/o F, at 13 weeks , pmh of anxiety and panic attacks, presents to the ED c/o of fevers, chills, headaches, NBNB vomiting x6, back pain , sweating, sob and nonradiating, localized, reproducible, sharp, parasternal chest pain. Pt reports that her fevers, headaches, vomitting and suprapubic pain began on monday afternoon, for which she went to the hospital [place] They discharged her after blood results came back negative. However, pt stated her symptoms persisted. Therefore, on monday she came to [facility] ED, where she was treated for her symptoms and the UA came back showing UTI and she was discharged on Abx. Pt reports she was asymptomatic this morning, until her fevers, vomit and headaches returned s/p breakfast. She was then transported to the ED via ambulance, during the transport her chest pain and sob developed and persisted since. In the ED she vomited several times, remained febrile at 102F, tachy at 133 bpm and symptomatic. Currently, she is afebrile and asymptomatic w / the exception of vomiting, headache, back pain and sweating. denies changes in vision, numbness or tingling, diarrhea, dysuria, hematuria, melena, hematochezia, abdominal pain, suprapubic pain. ER course was notable for: (1) MRI abd/pelvis ordered in ED- cancelled by admitting team (2) Aztreonem and Cefepine (3) 3L NS at 100 Recent Travel: - Current Medication List Current Medications: Active Medications Acetaminophen (Tylenol -) 650 mg PO Q4H PRN PRN Reason: PAIN OR FEVER Last Admin: 11/29/18 07:02 Dose: 650 mg Sodium Chloride (Normal Saline -) 1,000 mls @ 100 mls/hr IV ASDIR JUAN M Last Admin: 11/29/18 05:33 Dose: 100 mls/hr Ceftriaxone Sodium 1 gm/ (Dextrose) 50 mls @ 200 mls/hr IVPB DAILY JUAN M; Protocol - Objective Vital Signs: Vital Signs Temperature 102.8 F H 11/29/18 06:45 Pulse Rate 110 H 11/29/18 06:45 Respiratory Rate 16 11/29/18 06:45 Blood Pressure 120/96 11/29/18 06:45 O2 Sat by Pulse Oximetry (%) 98 11/29/18 06:45 Labs: CBC, BMP 11/29/18 06:15 11/29/18 06:15 INR, PTT INR 1.21 (0.83-1.09) H 11/28/18 20:45
[2018-11-29 10:09] LABS: ANISOCYTOSIS 0; HELMET CELLS 0; HOWELL-JOLLY BODIES 0; MACROCYTOSIS 0; OVALOCYTE 0; PLATELET ESTIMATE DECREASED; ROULEAU 0; SICKELED CELLS 0; TARGET CELLS 0; TEAR DROP CELLS 0; TOXIC GRANULATION 0
--- NOTE | 2018-11-29 11:03 | EKG ---
Test Reason : Blood Pressure : / mmHG Vent. Rate : 119 BPM Atrial Rate : 119 BPM P-R Int : 122 ms QRS Dur : 090 ms QT Int : 326 ms P-R-T Axes : 026 -13 017 degrees QTc Int : 458 ms SINUS TACHYCARDIA WHEN COMPARED WITH ECG OF 28-NOV-2018 03:41, NO SIGNIFICANT CHANGE WAS FOUND Confirmed by RICHARD SHARMA MD ([id number]) on 11/29/2018 11:03:43 AM Referred By: Confirmed By:RICHARD SHARMA MD
[2018-11-29 11:11] VITALS: BMI 38.4
--- NOTE | 2018-11-29 11:11 | CONSULT ---
Consult Consult Specialty:: OBGYN Reason for Consultation:: 13 week - History of Present Illness Chief Complaint: Fever History of Present Illness: 23yo @ 13.6wks by jason here with fevers, abdominal pain. Previously treated on 814 through the ED for a UTI, culture sunshine flood 10k. Still presented despite antibiotics for persistent fever and pain, N/V. No VB/LOF. No cramping. Too early for movement. - History Source History Provided By: Patient Limitations to Obtaining History: No Limitations - Past Medical History Hepatobiliary: No: Cirrhosis, Cholelithiasis, Cholecystitis, Choledocholithiasis , Hepatitis A, Hepatitis B, Hepatitis C, Other Renal/: No: Renal Failure, Renal Inusuff, BPH, Cancer, Hematuria, Hemodialysis , Neurogenic Bladder, Renal Calculi, UTI, Other Reproductive: No: Ectopic , Endometriosis, Fibroids, PID, Polycystic Ovary Syndrome, Postmenopausal, Other ...: Yes ...: 3 ...Para: 2 Psych: Yes: Anxiety, Other (txed for chlamydia) - Past Surgical History Past Surgical History: Yes: None - Alcohol/Substance Use Hx Alcohol Use: No - Smoking History Smoking history: Never smoked Have you smoked in the past 12 months: No - Social History ADL: Independent History of Recent Travel: No Home Medications - Allergies Allergies/Adverse Reactions: Allergies Allergy/AdvReac Type Severity Reaction Status Date / Time No Known Drug Allergies Allergy Mild Verified 11/28/18 20:24 seafood Allergy Intermediate Itching Uncoded 11/28/18 20:24 - Home Medications Home Medications: Ambulatory Orders Vitamins (Sjr) - 1 tab PO DAILY tablet 04/02/15 Cephalexin Monohydrate [Keflex -] 500 mg PO BID #10 capsule 11/28/18 Physical Exam Vital Signs: Vital Signs Temperature 102.8 F H 11/29/18 06:45 Pulse Rate 110 H 11/29/18 06:45 Respiratory Rate 16 11/29/18 06:45 Blood Pressure 120/96 11/29/18 06:45 O2 Sat by Pulse Oximetry (%) 98 11/29/18 06:45 Constitutional: Yes: Well Nourished, No Distress, Calm Gastrointestinal: Yes: WNL, Normal Bowel Sounds Labs: CBC, BMP 11/29/18 06:15 11/29/18 06:15 Assessment/Plan 23yo @ 13.6wks with fever, abd pain. Chart reviewed Labs NOT concerning for UTI/pyelo given essentially negative Urine culture; perhaps other source of fever, high neutrophil pointing to bacterial infection Blood cultures pending WBC low 2.7 now 4.1 as well at plts dropping from 158 to 115, may need possible Hematology consult given these values are abnormal for where WBC is usually mildly elevated and plts dropping this low early is not likely gestational thrombocytopenia Elevated LFTs, should have Amylase/Lipase labs, RUQ sono and Hepatitis panel drawn to look for GI source of infection. Pending those lab results, may need surgery consult if appropriate. Should also have CXR done. Needs doptones once daily or prn vaginal bleeding Cont PNV while in house and may have Zofran/Phenergan as need for antiemetics. Joel Jauregui MD
--- NOTE | 2018-11-29 12:21 | PN ---
Progress Note (short form) - Note Progress Note: ID consult dictated imp/reccd 23 yo female lives in [place], visitis her sister here, developed fever, with chills and headache and nausea and vomiting on Monday seen in the [facility] ER sent home, on Monday had some burning with urination she has had chills since then no pets, no insect bites, no travel, no diarrhea she came to [facility] ED yesterday with compliants of right sided pain, fever, and chills she has been vomiting and unable to eat since Monday found to have a uti, ob sono showed a 13 week IUP abd sonogram shows no stones she received fluids and iv rocephin, went to her sisters and went to sleep when she awoke she picked up her antibiotics and was unable to take them due to nausea brought to Ed with fever/chills/lactic acidosis/abnormal LFTs given cefepime/azactam in ED asked to evaluate on exam she has midepigastric and RUQ pain abnl lfts noted no cvat or suprapubic pain ?biliary disease- r/o choledocholithiasis-check hepatitis serology suggest GI and surgery consults mri/mrcp increase coverage to zosyn f/u cultures will send tick serology she is agreeable to HIV testing send cmv and viral serology IUP 13 weeks d/w hospitalist Problem List - Problems (1) Fever Code(s): R50.9 - FEVER, UNSPECIFIED Qualifiers: Fever type: unspecified Qualified Code(s): R50.9 - Fever, unspecified (2) Abnormal liver function test Code(s): R94.5 - ABNORMAL RESULTS OF LIVER FUNCTION STUDIES (3) Abdominal pain affecting Code(s): O26.899 - OTH RELATED CONDITIONS, UNSPECIFIED TRIMESTER; R10.9 - UNSPECIFIED ABDOMINAL PAIN (4) Thrombocytopenia Code(s): D69.6 - THROMBOCYTOPENIA, UNSPECIFIED
[2018-11-29] MEDS ORDERED: PIPERACILLIN/TAZOBACTAM 4.5 GM VIAL IVPB ONE ×2 (13:02→17:45)
[2018-11-29] MEDS ORDERED: DEXTROSE 5%-WATER 100 ML IVPB ONE ×2 (13:02→17:45)
[2018-11-29 13:15] LABS: COCAINE, UR NEGATIVE ng/ml (CUTOFF=300); METHADONE, UR NEGATIVE ng/ml (CUTOFF=300); OPIATES, URI NEGATIVE ng/ml (CUTOFF=300); PHENCYCLIDINE,URINE NEGATIVE ng/ml (CUTOFF=25); URINE AMPHETAMINES NEGATIVE ng/ml (CUTOFF=500); URINE BARBITURATES NEGATIVE ng/ml (CUTOFF=200); URINE BENZODIAZEPINES NEGATIVE ng/ml (CUTOFF=200)
--- NOTE | 2018-11-29 13:27 | CONSULT ---
- Consultation REQUESTING PROVIDER: PCP CONSULT REQUEST: We have been asked to surgically evaluate this patient for total body pain PCP:BRENDA Vega HISTORY OF PRESENT ILLNESS:23 y/o female 13 weeks presented 2x w/in 24 hours with total body aches and nausea and ? 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 She had subjective fever at home. PMHx: none PSHx: none Home Medications Medication Instructions Recorded Vitamins (Sjr) - 1 tab PO DAILY tablet 04/02/15 Cephalexin Monohydrate [Keflex -] 500 mg PO BID #10 capsule 11/28/18 Allergies Allergy/AdvReac Type Severity Reaction Status Date / Time No Known Drug Allergies Allergy Mild Verified 11/28/18 20:24 seafood Allergy Intermediate Itching Uncoded 11/28/18 20:24 PHYSICAL EXAM: GENERAL: Awake, alert, and fully oriented, in no acute distress. HEAD: Normal with no signs of trauma. EYES: sclera anicteric, conjunctiva clear. NECK: Normal ROM, supple without lymphadenopathy, JVD, or masses. ABDOMEN: Soft, nontender, not distended, normoactive bowel sounds, no guarding, no rebound, no masses. No organomegaly. No hernias; no Rovsings/psoas/ obturator signs. MUSCULOSKELETAL: Normal ROM at all joints. No bony deformities or tenderness. No CVA tenderness. UPPER EXTREMITIES: 2+ pulses, warm, well-perfused. No cyanosis. Cap refill <2 seconds. No peripheral edema. LOWER EXTREMITIES: 2+ pulses, warm, well-perfused. No calf tenderness. No peripheral edema. NEUROLOGICAL: Normal speech, gait not observed. PSYCH: Cooperative. Good eye contact. Appropriate mood and affect. SKIN: Warm, dry, normal turgor, no rashes or lesions noted. Vital Signs Temperature 100.3 F H 11/29/18 10:30 Pulse Rate 98 H 11/29/18 10:30 Respiratory Rate 22 H 11/29/18 10:30 Blood Pressure 111/65 11/29/18 10:30 O2 Sat by Pulse Oximetry (%) 99 11/29/18 11:14 Lab Results WBC 4.1 K/mm3 (4.0-10.0) 11/29/18 06:15 RBC 4.46 M/mm3 (3.60-5.2) 11/29/18 06:15 Hgb 11.9 GM/dL (10.7-15.3) 11/29/18 06:15 Hct 35.5 % (32.4-45.2) 11/29/18 06:15 MCV 79.6 fl (80-96) L 11/29/18 06:15 MCHC 33.6 g/dl (32.0-36.0) 11/29/18 06:15 RDW 16.0 % (11.6-15.6) H 11/29/18 06:15 Plt Count 119 K/MM3 (134-434) L D 11/29/18 06:15 Sodium 138 mmol/L (136-145) 11/29/18 06:15 Potassium 3.5 mmol/L (3.5-5.1) 11/29/18 06:15 Chloride 110 mmol/L (98-107) H 11/29/18 06:15 Carbon Dioxide 20 mmol/L (21-32) L 11/29/18 06:15 Anion Gap 9 MMOL/L (8-16) 11/29/18 06:15 BUN 3.5 mg/dL (7-18) L 11/29/18 06:15 Creatinine 0.7 mg/dL (0.55-1.3) 11/29/18 06:15 Random Glucose 113 mg/dL (74-106) H 11/29/18 06:15 Calcium 7.1 mg/dL (8.5-10.1) L 11/29/18 06:15 INR 1.21 (0.83-1.09) H 11/28/18 20:45 US done 11/28/18 reviewed MRI abd/pelvis non specific findings; limited study IMP: No evidence of an acute surgical abdomen. PLAN: Suggest MRI abdo/pelvis to r/o appendicitis though doubtful based on physical exam and by history. Will f/u; would continue current tx. plan in the interim. Deep Bautista MD FACS
[2018-11-29] MEDS: PIPERACILLIN/TAZOB 4.5 GM 4.5 GM in DEXTROSE 5%-WATER 100 ML IVPB SCH ×2 (14:36→18:59)
--- NOTE | 2018-11-29 16:16 | CON.CARD ---
Consult Consult Specialty:: Cardiology Referred by:: Medicine Reason for Consultation:: tachycardia, elevated trop - History of Present Illness Chief Complaint: nausea, fever, chills History of Present Illness: 23F at 13 weeks p/w fevers, chills, headache, nausea. Started a few days ago, worsening nausea and vomiting, was a febrile in ER, was also tachycardic to 133 bpm, felt palps. Reportedly had chest pain, sob in the ER and initially on the floor, currently denies chest pain, palps sob but feels tired. 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 On IV abx and has received IV fluids. - Past Medical History Hepatobiliary: No: Cirrhosis, Cholelithiasis, Cholecystitis, Choledocholithiasis , Hepatitis A, Hepatitis B, Hepatitis C, Other Renal/: No: Renal Failure, Renal Inusuff, BPH, Cancer, Hematuria, Hemodialysis , Neurogenic Bladder, Renal Calculi, UTI, Other ...: Yes Psych: Yes: Anxiety, Other (txed for chlamydia) - Past Surgical History Past Surgical History: Yes: None - Alcohol/Substance Use Hx Alcohol Use: No - Smoking History Smoking history: Never smoked Have you smoked in the past 12 months: No - Social History ADL: Independent History of Recent Travel: No Home Medications - Allergies Allergies/Adverse Reactions: Allergies Allergy/AdvReac Type Severity Reaction Status Date / Time No Known Drug Allergies Allergy Mild Verified 11/28/18 20:24 seafood Allergy Intermediate Itching Uncoded 11/28/18 20:24 - Home Medications Home Medications: Ambulatory Orders Vitamins (Sjr) - 1 tab PO DAILY tablet 04/02/15 Cephalexin Monohydrate [Keflex -] 500 mg PO BID #10 capsule 11/28/18 Vital Signs: Vital Signs Temperature 100.3 F H 11/29/18 10:30 Pulse Rate 98 H 11/29/18 10:30 Respiratory Rate 22 H 11/29/18 10:30 Blood Pressure 111/65 11/29/18 10:30 O2 Sat by Pulse Oximetry (%) 99 11/29/18 11:14 - Other Data Labs, Other Data: CBC, BMP 11/29/18 06:15 11/29/18 06:15 INR, PTT INR 1.21 (0.83-1.09) H 11/28/18 20:45 Troponin, BNP 11/28/18 11/29/18 20:45 06:15 Troponin I < 0.02 0.11 H Troponin, BNP 11/28/18 11/29/18 20:45 06:15 Troponin I < 0.02 0.11 H Assessment/Plan EKG: sinus tachycardia, no ischemic changes 23 y/o F, at 13 weeks , presents to the ED c/o of fevers, chills, chest pain, elevated trop chest pain, elevated trop, tachycardia - denies chest pain currently, noted to have pain reproducible on palpation - likely MSK, now resolved - sinus tachycardia likely in setting of fever, pain - elevated trop <0.02 -> 0.11, indeterminate range, in setting of infection with no ischemic changes on EKG. unlikely ACS, more consistent with demand in setting of infection - trend trop to peak - echo pending Sepsis - manage per ID, cultures pending elevated LFTs - GI consulted - commercial airplane pilot following
[2018-11-29] MEDS ORDERED: SODIUM CHLORIDE 1,000 ML IV SCH (16:45)
--- NOTE | 2018-11-29 18:24 | CONS ---
DATE OF CONSULTATION: 11/28/2018 DATE OF DICTATION: 11/29/2018 INFECTIOUS DISEASE CONSULTATION REQUESTING PHYSICIAN: Hospitalist Service CONSULTING PHYSICIAN: Carlos Fortune M.D. HISTORY OF PRESENT ILLNESS: This is a 23-year-old woman. She lives in [place] with her family. She on Monday developed fever, headache, nausea, and vomiting. She was evaluated at a hospital in [place] and discharged home. Her headache, fevers, chills, nausea and vomiting persisted, and on Monday she developed some discomfort on urination and some right-sided abdominal pain. She came to the emergency room here at [facility] because she came to visit her sister who lives in [place]. Upon arriving to the ER she was noted to have a fever of 101.4. She had a urinalysis sent that showed 1+ leukocyte esterase with 7 white cells. She had an ultrasound of her right upper quadrant done and she had an abdominal ultrasound done that showed no gallstones, mild hepatomegaly, and she was noted to have a positive test done. She did not know she was . She had an obstetric ultrasound done and she was noted to be 13 weeks' . She was given ceftriaxone and IV fluids and discharged home on Keflex. She went to her sister's house and went to sleep, upon awakening and going to the pharmacy to strip picker her medicine, she realized she was not able to keep them down, so at that time she was brought back to the ER with fevers, chills, and vomiting, and she had a fever of 104.7. She was given empiric cefepime and Azactam. She had repeat cultures drawn, and she was admitted for further evaluation. I am asked to see her for possible pyelonephritis. This morning her headaches have resolved. She continues and she overall is feeling better. She is receiving IV fluids and at this time her dysuria has resolved, but she continues to admit epigastric and right sided pain. She denies any CVA or suprapubic discomfort. PAST MEDICAL HISTORY: Notable for this is her 3rd child, she has a 3-year-old and a 5-month-old and June 2018 was when her last child was born. She was HIV negative at that time. She has a history of panic attacks and anxiety. There is no recent travel. She lives in [place] with her family, and she denies any cigarette, alcohol, or substance use. She denies any mosquito or tick bites. She has no pets. She has no known drug allergies. She is allergic to SEAFOOD which gives her itching and swelling. REVIEW OF SYSTEMS: As per HPI. Her headaches have resolved. She still feels weak, and she still feels nauseous. PHYSICAL EXAMINATION: VITAL SIGNS: Her temperature is 100.3, pulse 98, blood pressure 111/65, respiratory rate 20. HEENT: Normocephalic. Eyes are anicteric. NECK: Supple. LUNGS: Clear to auscultation. Of note, she refused chest x-ray in the ER. ABDOMEN: Soft. She has midepigastric and right upper quadrant discomfort to palpation. EXTREMITIES: Without edema. SKIN: She has no skin rash. LABORATORY: White count this morning was 4.1, last night it was 2.7. Hemoglobin 11.9, platelets are 119 with 91% neutrophils. Her INR is 1.2. Her lactic acid was 3.4 on arrival last night, it is now 1.8 with a BUN and creatinine of 3.5 and 0.7, total bilirubin of 1.9 with an AST of 136 and an ALT of 100, alkaline phosphatase 117. She has a troponin of 0.11. Her LFTs are normal. TSH of 0.12. Her urinalysis when she was originally seen in the ER had 1+ leukocyte esterase, today is negative. A urine toxicology screen was done and is negative as well. The imaging studies were as previously stated. IMPRESSION: In summary, this is a 23-year-old woman admitted with fever, nausea , vomiting, who on exam has midepigastric and right upper quadrant discomfort with abnormal liver function tests. This is not very clinically consistent with pyelonephritis, concern would be for biliary disease, rule out choledocholithiasis. Would check hepatitis serology. Would check tick serology, though I think this is less likely, as she mainly lives in [place]. Would suggest MRI, MRCP as this would be safe in . Would increase her coverage to Zosyn and follow up cultures. Would suggest gastrointestinal and surgery evaluation. She is agreeable to HIV testing, which I will order as well. Would check viral serology as well. CARLOS FORTUNE M.D. DEBRA/[id number] MTDD
--- NOTE | 2018-11-29 18:35 | DS ---
Physical Exam: SUBJECTIVE: Patient seen and examined OBJECTIVE: Vital Signs Period Temp Pulse Resp BP Sys/Sebastian Pulse Ox Last 24 Hr 98.7 F-104.7 F 80-155 16-25 96-120/45-96 98-100 PHYSICAL EXAM GENERAL: The patient is awake, alert, and fully oriented, in no acute distress. HEAD: Normal with no signs of trauma. EYES: PERRL, extraocular movements intact, sclera anicteric, conjunctiva clear. ENT: Ears normal, nares patent, oropharynx clear without exudates, moist mucous membranes. NECK: Trachea midline, full range of motion, supple. LUNGS: Breath sounds equal, clear to auscultation bilaterally, no wheezes, no crackles, no accessory muscle use. HEART: Regular rate and rhythm, S1, S2 without murmur, rub or gallop. ABDOMEN: Soft, nontender, nondistended, normoactive bowel sounds, no guarding, no rebound, no hepatosplenomegaly, no masses. EXTREMITIES: 2+ pulses, warm, well-perfused, no edema. NEUROLOGICAL: Cranial nerves II through XII grossly intact. Normal speech, gait not observed. PSYCH: Normal mood, normal affect. SKIN: Warm, dry, normal turgor, no rashes or lesions noted. LABS Laboratory Results - last 24 hr 11/28/18 11/28/18 11/28/18 20:45 20:45 20:45 WBC 2.7 L RBC 4.59 Hgb 12.3 Hct 36.2 MCV 78.9 L MCH 26.7 MCHC 33.8 RDW 16.4 H Plt Count 158 MPV 10.2 Absolute Neuts (auto) 2.0 Neutrophils % 73.7 Neutrophils % (Manual) Band Neutrophils % Lymphocytes % 23.5 D Lymphocytes % (Manual) Monocytes % 2.1 L Monocytes % (Manual) Eosinophils % 0.2 D Eosinophils % (Manual) Basophils % 0.5 D Basophils % (Manual) Myelocytes % (Man) Promyelocytes % (Man) Blast Cells % (Manual) Nucleated RBC % 0 Metamyelocytes Hypochromia Toxic Granulation Dohle Bodies Platelet Estimate Polychromasia Poikilocytosis Basophilic Stippling Anisocytosis Microcytosis Macrocytosis Spherocytes Sickle Cells Target Cells Tear Drop Cells Ovalocytes Stomatocytes Helmet Cells Clements-[place]rain[place] Bodies [place] Rings [place] Cells Acanthocytes (Spur) Rouleaux Fragmented RBCs Schistocytes PT with INR 14.30 H INR 1.21 H PTT (Actin FS) 26.9 Sodium 138 Potassium 3.4 L Chloride 103 Carbon Dioxide 23 Anion Gap 12 BUN 6.2 L Creatinine 1.1 Est GFR (CKD-EPI)AfAm 82.53 Est GFR (CKD-EPI)NonAf 71.21 Random Glucose 110 H Lactic Acid Calcium 8.6 Magnesium Total Bilirubin 1.0 AST 27 ALT 28 Alkaline Phosphatase 70 Creatine Kinase Creatine Kinase Index CK-MB (CK-2) Troponin I Total Protein 8.1 Albumin 3.7 Total Amylase Lipase TSH Beta HCG, Quant Urine Color Urine Appearance Urine pH Ur Specific [place] Urine Protein Urine Glucose (UA) Urine Ketones Urine Blood Urine Nitrite Urine Bilirubin Urine Urobilinogen Ur Leukocyte Esterase Urine WBC (Auto) Urine RBC (Auto) Urine Casts (Auto) U Epithel Cells (Auto) Urine Bacteria (Auto) Opiates Screen Methadone Screen Barbiturate Screen Phencyclidine Screen Ur Amphetamines Screen MDMA (Ecstasy) Screen Benzodiazepines Screen Cocaine Screen U Marijuana (THC) Screen 11/28/18 11/28/18 11/28/18 20:45 20:45 20:45 WBC RBC Hgb Hct MCV MCH MCHC RDW Plt Count MPV Absolute Neuts (auto) Neutrophils % Neutrophils % (Manual) Band Neutrophils % Lymphocytes % Lymphocytes % (Manual) Monocytes % Monocytes % (Manual) Eosinophils % Eosinophils % (Manual) Basophils % Basophils % (Manual) Myelocytes % (Man) Promyelocytes % (Man) Blast Cells % (Manual) Nucleated RBC % Metamyelocytes Hypochromia Toxic Granulation Dohle Bodies Platelet Estimate Polychromasia Poikilocytosis Basophilic Stippling Anisocytosis Microcytosis Macrocytosis Spherocytes Sickle Cells Target Cells Tear Drop Cells Ovalocytes Stomatocytes Helmet Cells Clements-[place] Bodies [place] Rings [place] Cells Acanthocytes (Spur) Rouleaux Fragmented RBCs Schistocytes PT with INR INR PTT (Actin FS) Sodium Potassium Chloride Carbon Dioxide Anion Gap BUN Creatinine Est GFR (CKD-EPI)AfAm Est GFR (CKD-EPI)NonAf Random Glucose Lactic Acid 3.4 H* Calcium Magnesium Total Bilirubin AST ALT Alkaline Phosphatase Creatine Kinase 275 H Creatine Kinase Index No Result Required. CK-MB (CK-2) < 1.0 Troponin I < 0.02 Total Protein Albumin Total Amylase Lipase TSH Beta HCG, Quant 78210.7 Urine Color Dk yellow Urine Appearance Clear Urine pH 5.5 Ur Specific [place] 1.023 Urine Protein 2+ H Urine Glucose (UA) Negative Urine Ketones Trace H Urine Blood Negative Urine Nitrite Negative Urine Bilirubin 1+ H Urine Urobilinogen 1.0 Ur Leukocyte Esterase Negative Urine WBC (Auto) 2 Urine RBC (Auto) 1 Urine Casts (Auto) 6 U Epithel Cells (Auto) 1.6 Urine Bacteria (Auto) 3.4 Opiates Screen Methadone Screen Barbiturate Screen Phencyclidine Screen Ur Amphetamines Screen MDMA (Ecstasy) Screen Benzodiazepines Screen Cocaine Screen U Marijuana (THC) Screen 11/29/18 11/29/18 11/29/18 00:30 05:30 06:15 WBC 4.1 RBC 4.46 Hgb 11.9 Hct 35.5 MCV 79.6 L MCH 26.7 MCHC 33.6 RDW 16.0 H Plt Count 119 L D MPV 10.7 Absolute Neuts (auto) 3.8 Neutrophils % 91.5 H D Neutrophils % (Manual) 74.7 Band Neutrophils % 16.2 Lymphocytes % 6.4 L D Lymphocytes % (Manual) 6.1 L Monocytes % 2.0 L Monocytes % (Manual) 1 L Eosinophils % 0.0 D Eosinophils % (Manual) 0.0 Basophils % 0.1 Basophils % (Manual) 1.0 Myelocytes % (Man) 0 Promyelocytes % (Man) 0 Blast Cells % (Manual) 0 Nucleated RBC % 0 Metamyelocytes 0 Hypochromia 0 Toxic Granulation 0 Dohle Bodies 0 Platelet Estimate Decreased Polychromasia 0 Poikilocytosis 0 Basophilic Stippling 0 Anisocytosis 0 Microcytosis 0 Macrocytosis 0 Spherocytes 0 Sickle Cells 0 Target Cells 0 Tear Drop Cells 0 Ovalocytes 0 Stomatocytes 0 Helmet Cells 0 Clements-[place] Bodies 0 [place] Rings 0 Scott Cells 0 Acanthocytes (Spur) 0 Rouleaux 0 Fragmented RBCs 0 Schistocytes 0 PT with INR INR PTT (Actin FS) Sodium Potassium Chloride Carbon Dioxide Anion Gap BUN Creatinine Est GFR (CKD-EPI)AfAm Est GFR (CKD-EPI)NonAf Random Glucose Lactic Acid 2.9 H* 1.8 Calcium Magnesium Total Bilirubin AST ALT Alkaline Phosphatase Creatine Kinase Creatine Kinase Index CK-MB (CK-2) Troponin I Total Protein Albumin Total Amylase Lipase TSH Beta HCG, Quant Urine Color Urine Appearance Urine pH Ur Specific [place] Urine Protein Urine Glucose (UA) Urine Ketones Urine Blood Urine Nitrite Urine Bilirubin Urine Urobilinogen Ur Leukocyte Esterase Urine WBC (Auto) Urine RBC (Auto) Urine Casts (Auto) U Epithel Cells (Auto) Urine Bacteria (Auto) Opiates Screen Methadone Screen Barbiturate Screen Phencyclidine Screen Ur Amphetamines Screen MDMA (Ecstasy) Screen Benzodiazepines Screen Cocaine Screen U Marijuana (THC) Screen 11/29/18 11/29/18 06:15 12:15 WBC RBC Hgb Hct MCV MCH MCHC RDW Plt Count MPV Absolute Neuts (auto) Neutrophils % Neutrophils % (Manual) Band Neutrophils % Lymphocytes % Lymphocytes % (Manual) Monocytes % Monocytes % (Manual) Eosinophils % Eosinophils % (Manual) Basophils % Basophils % (Manual) Myelocytes % (Man) Promyelocytes % (Man) Blast Cells % (Manual) Nucleated RBC % Metamyelocytes Hypochromia Toxic Granulation Dohle Bodies Platelet Estimate Polychromasia Poikilocytosis Basophilic Stippling Anisocytosis Microcytosis Macrocytosis Spherocytes Sickle Cells Target Cells Tear Drop Cells Ovalocytes Stomatocytes Helmet Cells Clements-[place] Bodies [place] Rings [place] Cells Acanthocytes (Spur) Rouleaux Fragmented RBCs Schistocytes PT with INR INR PTT (Actin FS) Sodium 138 Potassium 3.5 Chloride 110 H Carbon Dioxide 20 L Anion Gap 9 BUN 3.5 L Creatinine 0.7 Est GFR (CKD-EPI)AfAm 142.54 Est GFR (CKD-EPI)NonAf 122.98 Random Glucose 113 H Lactic Acid Calcium 7.1 L Magnesium 1.3 L Total Bilirubin 1.9 H AST 136 H ALT 100 H Alkaline Phosphatase 117 Creatine Kinase Creatine Kinase Index CK-MB (CK-2) Troponin I 0.11 H Total Protein 6.6 Albumin 2.8 L Total Amylase 31 Lipase 87 TSH 1.20 Beta HCG, Quant Urine Color Urine Appearance Urine pH Ur Specific [place] Urine Protein Urine Glucose (UA) Urine Ketones Urine Blood Urine Nitrite Urine Bilirubin Urine Urobilinogen Ur Leukocyte Esterase Urine WBC (Auto) Urine RBC (Auto) Urine Casts (Auto) U Epithel Cells (Auto) Urine Bacteria (Auto) Opiates Screen Negative Methadone Screen Negative Barbiturate Screen Negative Phencyclidine Screen Negative Ur Amphetamines Screen Negative MDMA (Ecstasy) Screen Negative Benzodiazepines Screen Negative Cocaine Screen Negative U Marijuana (THC) Screen Negative HOSPITAL COURSE: Date of Admission:11/28/18 Date of Discharge: 11/29/18 CHIEF COMPLAINT: vomit, fevers, headaches PCP: none HISTORY OF PRESENT ILLNESS: 23 y/o F, at 13 weeks , pmh of anxiety and panic attacks, presents to the ED c/o of fevers, chills, headaches, NBNB vomiting x6, back pain , sweating, sob and nonradiating, localized, reproducible, sharp, parasternal chest pain. Pt reports that her fevers, headaches, vomitting and suprapubic pain began on monday, for which she went to the hospital in [place]. They discharged her after blood results came back negative. However, pt stated her symptoms persisted. Therefore, on monday she came to [facility] ED, where she was treated for her symptoms and the UA came back showing UTI and she was discharged on Abx. Pt reports she was asymptomatic this morning, until her fevers, vomit and headaches returned s/p breakfast. She was then transported to the ED via ambulance, during the transport her chest pain and sob developed and persisted since. In the ED she vomited several times, remained febrile at 102F, tachy at 133 bpm and symptomatic. Currently, she is afebrile and asymptomatic w / the exception of vomiting, headache, back pain and sweating. denies changes in vision, numbness or tingling, diarrhea, dysuria, hematuria, melena, hematochezia, abdominal pain, suprapubic pain. ER course was notable for: (1) MRI abd/pelvis ordered in ED- cancelled by admitting team (2) Aztreonem and Cefepine (3) 3L NS at 100 CHIEF COMPLAINT: vomit, fevers, headaches PCP: none HISTORY OF PRESENT ILLNESS: 23 y/o F, at 13 weeks , pmh of anxiety and panic attacks, presents to the ED c/o of fevers, chills, headaches, NBNB vomiting x6, back pain , sweating, sob and nonradiating, localized, reproducible, sharp, parasternal chest pain. Pt reports that her fevers, headaches, vomitting and suprapubic pain began on monday, for which she went to the hospital in [place]. They discharged her after blood results came back negative. However, pt stated her symptoms persisted. Therefore, on monday she came to [facility] ED, where she was treated for her symptoms and the UA came back showing UTI and she was discharged on Abx. Pt reports she was asymptomatic this morning, until her fevers, vomit and headaches returned s/p breakfast. She was then transported to the ED via ambulance, during the transport her chest pain and sob developed and persisted since. In the ED she vomited several times, remained febrile at 102F, tachy at 133 bpm and symptomatic. Currently, she is afebrile and asymptomatic w / the exception of vomiting, headache, back pain and sweating. denies changes in vision, numbness or tingling, diarrhea, dysuria, hematuria, melena, hematochezia, abdominal pain, suprapubic pain. ER course was notable for: (1) MRI abd/pelvis ordered in ED- cancelled by admitting team (2) Aztreonem and Cefepine (3) 3L NS at 100 REVIEW OF SYSTEMS CONSTITUTIONAL: Admits: fever, chills, diaphoresis, generalized weakness, headaches Absent: malaise, loss of appetite, weight change HEENT: Absent: throat pain, difficulty swallowing, ear pain, eye pain, visual changes CARDIOVASCULAR: Admits: parasternal chest pain, irregular heart rate, Absent: syncope, palpitations, lightheadedness, peripheral edema RESPIRATORY: Admits: shortness of breath, dyspnea with exertion, Absent: cough, orthopnea, wheezing, hemoptysis GASTROINTESTINAL: Admits: nausea, vomiting, Absent: abdominal pain, abdominal distension, diarrhea, constipation, melena, hematochezia GENITOURINARY: Admits: flank pain, Absent: dysuria, frequency, urgency, hesitancy, hematuria, genital pain MUSCULOSKELETAL: Admits: back pain, Absent: myalgia, joint swelling, neck pain ENDOCRINE: Absent: unexplained weight loss, heat intolerance, cold intolerance NEUROLOGIC: Admits: headache, Absent: focal weakness or paresthesias, dizziness, seizure, mental status changes, bladder or bowel incontinence PSYCHIATRIC: Admits: anxiety, Absent: depression, GENERAL: Awake, alert, and fully oriented, in no acute distress. HEAD: Normal with no signs of trauma. EYES: PERRLA, EOMI, anicteric conjunctiva EARS, NOSE, THROAT: oropharynx clear without exudates. Moist mucous membranes. NECK: supple without lymphadenopathy, JVD, or masses, no bruit LUNGS: CTAB, No wheezes, and no crackles. Mild Accessory muscle use. HEART: RRR, normal S1 and S2 without murmur, rub or gallop. ABDOMEN: Soft, nontender, not distended, normoactive bowel sounds, no guarding, no rebound, no masses. No hepatomegaly or splenomegaly. MUSCULOSKELETAL: Right CVA tenderness noted UPPER EXTREMITIES: 2+ pulses, warm, well-perfused. No cyanosis. No peripheral edema. LOWER EXTREMITIES: 2+ pulses, warm, well-perfused. No peripheral edema. PSYCHIATRIC: Cooperative. Good eye contact. Appropriate mood and affect. ASSESSMENT/PLAN: 23 y/o F, at 13 weeks , presents to the ED c/o of fevers, chills, headaches, NBNB vomiting x6, back pain, sweating, sob and non-radiating, localized, reproducible, sharp, parasternal chest pain likely 2/2 to sepsis due to pyelo #Sepsis 2/2 to Pyelonephritis?? 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 Will try to repeat study MRI:FINDINGS: The study is of essentially of very poor diagnostic value as only axial and coronal T2 images were obtained. The patient could not tolerate the remainder of the exam and was aborted at her request. There is trace right- sided pleural effusion. The liver is enlarged measuring 17.5 cm in length. No focal hepatic T2 signal abnormality is seen. Extensive periportal edema. The spleen is enlarged measuring 15.3 x 12.2 x 6.2 cm with no focal lesion identified. The pancreas is homogeneous with no focal T2 signal abnormality. The pancreatic duct is nondilated. The gallbladder is partially distended demonstrating significant wall thickening. The CBD is normal in caliber however adequate evaluation for tiny stones cannot be performed due to non acquisition of the MRCP images. -Abx coverage was increased to zosyn -remained afebrile but with intermittent chills -espinoza cultured -tick borne illness serologies sent and pending -abdominal US 11/28 nwas unremarkable with only findings of fatty liver -LFT normal on admission with repeat 12 hrs klater with increased AST/ALT 136/ 100, tbil 1.9, plt decresing to 119, with wbc at 2.7. , Seen by OB and felt this was not resultant of pregancy. Seen by GI/general surgery an no acute abdomen. Repeat MRI and US pending. Seen by Cardiology for chest pain when lying flat , elevated trop, tachycardia - denies chest pain presently noted to have pain reproducible on palpation - questionable MSK in etiology - elevated trop <0.02 -> 0.11, indeterminate range, in setting of infection with no ischemic changes on EKG. unlikely ACS, more consistent with demand in setting of infection - will ccontinue to trend trop to peak - echo pending to assess for RV starin _Dopplers of LE also pending. Given complexity of patient and preganancy of 13 week with unknown cause of abdmonal pain with hepatomegaly/spleenomegaly we opted to have patient transfered [facility] for further mangement Minutes to complete discharge: 60 Discharge Summary Reason For Visit: FEVER,,PYELONEPHRITIS Current Active Problems Fever (Acute) Pyelonephritis affecting (Acute) Hospital Course: HOSPITAL COURSE: Date of Admission:11/28/18 Date of Discharge: 11/29/18 CHIEF COMPLAINT: vomit, fevers, headaches PCP: none HISTORY OF PRESENT ILLNESS: 23 y/o F, at 13 weeks , pmh of anxiety and panic attacks, presents to the ED c/o of fevers, chills, headaches, NBNB vomiting x6, back pain , sweating, sob and nonradiating, localized, reproducible, sharp, parasternal chest pain. Pt reports that her fevers, headaches, vomitting and suprapubic pain began on monday afternoon, for which she went to the hospital in [place]. They discharged her after blood results came back negative. However, pt stated her symptoms persisted. Therefore, on monday she came to [facility] ED, where she was treated for her symptoms and the UA came back showing UTI and she was discharged on Abx. Pt reports she was asymptomatic this morning, until her fevers, vomit and headaches returned s/p breakfast. She was then transported to the ED via ambulance, during the transport her chest pain and sob developed and persisted since. In the ED she vomited several times, remained febrile at 102F, tachy at 133 bpm and symptomatic. Currently, she is afebrile and asymptomatic w / the exception of vomiting, headache, back pain and sweating. denies changes in vision, numbness or tingling, diarrhea, dysuria, hematuria, melena, hematochezia, abdominal pain, suprapubic pain. ER course was notable for: (1) MRI abd/pelvis ordered in ED- cancelled by admitting team (2) Aztreonem and Cefepine (3) 3L NS at 100 CHIEF COMPLAINT: vomit, fevers, headaches PCP: none HISTORY OF PRESENT ILLNESS: 23 y/o F, at 13 weeks , pmh of anxiety and panic attacks, presents to the ED c/o of fevers, chills, headaches, NBNB vomiting x6, back pain , sweating, sob and nonradiating, localized, reproducible, sharp, parasternal chest pain. Pt reports that her fevers, headaches, vomitting and suprapubic pain began on monday afternoon, for which she went to the hospital in [place]. They discharged her after blood results came back negative. However, pt stated her symptoms persisted. Therefore, on monday she came to [facility] ED, where she was treated for her symptoms and the UA came back showing UTI and she was discharged on Abx. Pt reports she was asymptomatic this morning, until her fevers, vomit and headaches returned s/p breakfast. She was then transported to the ED via ambulance, during the transport her chest pain and sob developed and persisted since. In the ED she vomited several times, remained febrile at 102F, tachy at 133 bpm and symptomatic. Currently, she is afebrile and asymptomatic w / the exception of vomiting, headache, back pain and sweating. denies changes in vision, numbness or tingling, diarrhea, dysuria, hematuria, melena, hematochezia, abdominal pain, suprapubic pain. ER course was notable for: (1) MRI abd/pelvis ordered in ED- cancelled by admitting team (2) Aztreonem and Cefepine (3) 3L NS at 100 REVIEW OF SYSTEMS CONSTITUTIONAL: Admits: fever, chills, diaphoresis, generalized weakness, headaches Absent: malaise, loss of appetite, weight change HEENT: Absent: throat pain, difficulty swallowing, ear pain, eye pain, visual changes CARDIOVASCULAR: Admits: parasternal chest pain, irregular heart rate, Absent: syncope, palpitations, lightheadedness, peripheral edema RESPIRATORY: Admits: shortness of breath, dyspnea with exertion, Absent: cough, orthopnea, wheezing, hemoptysis GASTROINTESTINAL: Admits: nausea, vomiting, Absent: abdominal pain, abdominal distension, diarrhea, constipation, melena, hematochezia GENITOURINARY: Admits: flank pain, Absent: dysuria, frequency, urgency, hesitancy, hematuria, genital pain MUSCULOSKELETAL: Admits: back pain, Absent: myalgia, joint swelling, neck pain ENDOCRINE: Absent: unexplained weight loss, heat intolerance, cold intolerance NEUROLOGIC: Admits: headache, Absent: focal weakness or paresthesias, dizziness, seizure, mental status changes, bladder or bowel incontinence PSYCHIATRIC: Admits: anxiety, Absent: depression, GENERAL: Awake, alert, and fully oriented, in no acute distress. HEAD: Normal with no signs of trauma. EYES: PERRLA, EOMI, anicteric conjunctiva EARS, NOSE, THROAT: oropharynx clear without exudates. Moist mucous membranes. NECK: supple without lymphadenopathy, JVD, or masses, no bruit LUNGS: CTAB, No wheezes, and no crackles. Mild Accessory muscle use. HEART: RRR, normal S1 and S2 without murmur, rub or gallop. ABDOMEN: Soft, nontender, not distended, normoactive bowel sounds, no guarding, no rebound, no masses. No hepatomegaly or splenomegaly. MUSCULOSKELETAL: Right CVA tenderness noted UPPER EXTREMITIES: 2+ pulses, warm, well-perfused. No cyanosis. No peripheral edema. LOWER EXTREMITIES: 2+ pulses, warm, well-perfused. No peripheral edema. PSYCHIATRIC: Cooperative. Good eye contact. Appropriate mood and affect. ASSESSMENT/PLAN: 23 y/o F, at 13 weeks , presents to the ED c/o of fevers, chills, headaches, NBNB vomiting x6, back pain, sweating, sob and non-radiating, localized, reproducible, sharp, parasternal chest pain likely 2/2 to sepsis due to pyelo #Sepsis 2/2 to Pyelonephritis?? 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 Will try to repeat study MRI:FINDINGS: The study is of essentially of very poor diagnostic value as only axial and coronal T2 images were obtained. The patient could not tolerate the remainder of the exam and was aborted at her request. There is trace right- sided pleural effusion. The liver is enlarged measuring 17.5 cm in length. No focal hepatic T2 signal abnormality is seen. Extensive periportal edema. The spleen is enlarged measuring 15.3 x 12.2 x 6.2 cm with no focal lesion identified. The pancreas is homogeneous with no focal T2 signal abnormality. The pancreatic duct is nondilated. The gallbladder is partially distended demonstrating significant wall thickening. The CBD is normal in caliber however adequate evaluation for tiny stones cannot be performed due to non acquisition of the MRCP images. -Abx coverage was increased to zosyn -remained afebrile but with intermittent chills -espinoza cultured -tick borne illness serologies sent and pending -abdominal US 11/28 nwas unremarkable with only findings of fatty liver -LFT normal on admission with repeat 12 hrs klater with increased AST/ALT 136/ 100, tbil 1.9, plt decresing to 119, with wbc at 2.7. , Seen by OB and felt this was not resultant of pregancy. Seen by GI/general surgery an no acute abdomen. Repeat MRI and US pending. Seen by Cardiology for chest pain when lying flat , elevated trop, tachycardia - denies chest pain presently noted to have pain reproducible on palpation - questionable MSK in etiology - elevated trop <0.02 -> 0.11, indeterminate range, in setting of infection with no ischemic changes on EKG. unlikely ACS, more consistent with demand in setting of infection - will ccontinue to trend trop to peak - echo pending to assess for RV starin _Dopplers of LE also pending. Given complexity of patient and preganancy of 13 week with unknown cause of abdmonal pain with hepatomegaly/spleenomegaly we opted to have patient transfered [facility] for further mangement Condition: Guarded - Instructions Diet, Activity, Other Instructions: NPO Disposition: TRANSFER ACUTE CARE/OTHER HOSP - Home Medications Comprehensive Discharge Medication List: Ambulatory Orders Vitamins (Sjr) - 1 tab PO DAILY tablet 04/02/15 Cephalexin Monohydrate [Keflex -] 500 mg PO BID #10 capsule 11/28/18 This patient is new to me today: Yes Date on this admission: 11/29/18 Emergency Visit: Yes ED Registration Date: 11/28/18 Care time: The patient presented to the Emergency Department on the above date and was hospitalized for further evaluation of their emergent condition. Critical Care patient: No - Discharge Referral [facility]erred to [facility] No
[2018-11-29 18:55] LABS: BILIRUBIN,DIRECT 0.9 mg/dL (0.0-0.2)
[2018-11-29] MEDS ORDERED: MAGNESIUM SULFATE IN WATER 2 GM/50 ML IVPB IVPB ONE (19:23)
--- NOTE | 2018-11-29 20:25 | CON.GI ---
Consult Consult Specialty:: GI Referred by:: hospitalist service Reason for Consultation:: Abdominal pain, abnormal LFTs - History of Present Illness Chief Complaint: fevers, body aches, headaches, abdominal pain History of Present Illness: 23F initially seen at [facility] for evaluation of chills, body aches. She states that blood work was performed , it was "OK" and they sent her home. Monday her complaints worsened and Monday with Temp 104.7, headaches and had right sided upper abdominal pain as well. While visiting her sister in [place], was seen at the [facility] ER. Temp was 101.5. She was diagnosed with a UTI, Had an ABD US revealing mild hepatomegaly, fatty liver, normal appearing GB and biliary tract. visualized portions of the IVC and PV appeared patent. She was given ceftriaxone and keflex x 1 and sent home on kelfex (did not take any at home). Symptoms persisted so she returned to the [facility] ER and was admitted. She underwent MRCP yesterday due to a rise in LFTs. The MRCP images were not diagnostic due to motion artifact but the CBD did not appear dilated. hepatosplenomagly was appreciated as was periportal edema and gallbladder wall thickening. She denies known history of liver disease, recent travel, change in dietary habits, diarrhea. Overall abdominal pain improved. She is 13 weeks and denies any related complications during her two previous pregnancies. - History Source History Provided By: Patient, Medical Record - Past Medical History ...: Yes Psych: Yes: Anxiety, Other (txed for chlamydia) Additional Medical History: Denies - Past Surgical History Past Surgical History: Yes: None Additional Surgical History: Denies - Alcohol/Substance Use Hx Alcohol Use: No History of Substance Use: reports: None - Smoking History Smoking history: Never smoked Have you smoked in the past 12 months: No - Social History Usual Living Arrangement: Alone ADL: Independent Occupation: Unemployed Place of : [place] History of Recent Travel: No Home Medications - Allergies Allergies/Adverse Reactions: Allergies Allergy/AdvReac Type Severity Reaction Status Date / Time No Known Drug Allergies Allergy Mild Verified 11/28/18 20:24 seafood Allergy Intermediate Itching Uncoded 11/28/18 20:24 - Home Medications Home Medications: Ambulatory Orders Vitamins (Sjr) - 1 tab PO DAILY tablet 04/02/15 Cephalexin Monohydrate [Keflex -] 500 mg PO BID #10 capsule 11/28/18 Family Disease History - Family Disease History Family Disease History: Other: Father (Does not know his medical hx.), Mother ( Aliver: HTN), Brother (2, healthy), Sister (2, healthy) Other Family History: 2 children: healthy Review of Systems - Review of Systems Constitutional: reports: Chills, Fever, Night Sweats. denies: Unintentional Wgt. Loss Cardiovascular: reports: Chest Pain Gastrointestinal: reports: Abdominal Pain Musculoskeletal: reports: Back Pain, Extremity Pain, Joint Pain Physical Exam-GI Vital Signs: Vital Signs Temperature 98.7 F 11/29/18 18:00 Pulse Rate 80 11/29/18 18:00 Respiratory Rate 20 11/29/18 18:00 Blood Pressure 96/63 11/29/18 18:00 O2 Sat by Pulse Oximetry (%) 99 11/29/18 11:14 Constitutional: Yes: Calm Eyes: No: Sclera Icterus Cardiovascular: Yes: Regular Rate and Rhythm Respiratory: Yes: CTA Bilaterally Gastrointestinal Inspection: No: Distention ...Auscultate: Yes: Normoactive Bowel Sounds ...Palpate: No: Hepatomegaly, Splenomegaly, Tenderness ...Percussion: No: Tympanitic Edema: No (No LE edema) Neurological: Yes: Alert Labs: CBC, BMP 11/29/18 06:15 11/29/18 06:15 INR, PTT INR 1.21 (0.83-1.09) H 11/28/18 20:45 Hepatic Panel Total Bilirubin 1.9 mg/dL (0.2-1) H 11/29/18 06:15 Direct Bilirubin 0.9 mg/dL (0.0-0.2) H 11/29/18 06:15 AST 136 U/L (15-37) H 11/29/18 06:15 ALT 100 U/L (13-61) H 11/29/18 06:15 Alkaline Phosphatase 117 U/L (45-117) 11/29/18 06:15 Albumin 2.8 g/dl (3.4-5.0) L 11/29/18 06:15 Problem List - Problems (1) Abnormal liver function test Assessment/Plan: Given constellation of symptoms leading up to her hospitalization as well as hepatosplenomegaly noted on recent imaging studies, I question if the liver chemistries are reflective of a systemic process such as viral / parasitic infection. This is early in her for an AFLP picture and the other constellation of symptoms do not fit. The initial abdominal US revealed a normal appearing gallbladder and I suspect that the GB thickening may be reactive. Continued ID work-up is in progress and I have ordered CMV / EBV PCR. Given that she is 13 weeks , decision was made to transfer the patient to a tertiary care high risk facility. She is currently awaiting a bed at [facility]. MRI has been repeated in order to obtain proper MRCP images. Monitor LFTs Monitor PT/INR Hepatitis A/B/C serologies Code(s): R94.5 - ABNORMAL RESULTS OF LIVER FUNCTION STUDIES
[2018-11-29 20:48] LABS: BASO % 0.2 % (0-2.0); HEMOGLOBIN 10.8 GM/dL (10.7-15.3); LYMPH % 10.8 % (8-40); MCH 26.7 pg (25.7-33.7); MCHC 33.7 g/dl (32.0-36.0); MEAN CELL VOLUME 79.2 fl (80-96); MEAN PLT VOLUME 10.4 fl (7.5-11.1); MONO % 2.9 % (3.8-10.2); NEUT % 86.1 % (42.8-82.8); PLATELET COUNT 105 K/MM3 (134-434); RBC 4.04 M/mm3 (3.60-5.2); RDW 16.1 % (11.6-15.6); WHITE BLOOD COUNT 3.5 K/mm3 (4.0-10.0)
[2018-11-29 21:03] LABS: INR 1.44 (0.83-1.09); PROTHROMBIN TIME (PATIENT) 17.1 SEC (9.7-13.0)
[2018-11-29 21:13] LABS: ALBUMIN 2.7 g/dl (3.4-5.0); BILIRUBIN,DIRECT 2.3 mg/dL (0.0-0.2); BILIRUBIN,TOTAL 2.6 mg/dL (0.2-1); BILIRUBIN,TOTAL 2.8 mg/dL (0.2-1); BLOOD UREA NITROGEN 4.3 mg/dL (7-18); CALCIUM 7.8 mg/dL (8.5-10.1); CREATININE 0.6 mg/dL (0.55-1.3); MAGNESIUM 1.7 mg/dL (1.8-2.4); POTASSIUM 3.1 mmol/L (3.5-5.1); TOT PROT 6.1 g/dl (6.4-8.2)
[2018-11-29 21:14] LABS: ALBUMIN 2.8 g/dl (3.4-5.0); BILIRUBIN,DIRECT 2.3 mg/dL (0.0-0.2); BILIRUBIN,TOTAL 2.7 mg/dL (0.2-1); TOT PROT 6.3 g/dl (6.4-8.2)
[2018-11-29 21:17] LABS: N-TERMINAL BNP 989.1 pg/ml (5-125)
[2018-11-29] MEDS ORDERED: CHLORHEXIDINE GLUCONATE 4% CLEANSER FOR DECOLONIZATION TP SCH (22:00)
[2018-11-29] MEDS ORDERED: MUPIROCIN 2% TOPICAL OINTMENT FOR DECOLONIZATION NS SCH (22:00)
[2018-11-29] MEDS ORDERED: IBUPROFEN 400 MG TABLET (FP) PO ONE (22:59)
[2018-11-29] MEDS: KCL 10 MEQ IVPB 10 MEQ/100 ML INFUS.BAG IVPB SCH (23:54)
[2018-11-30] MEDS ORDERED: MAGNESIUM SULF 50% (8.12 MEQ/2 ML-1 GM VIAL) IVPB ONE (00:30)
[2018-11-30] MEDS ORDERED: PIPERACILLIN/TAZOBACTAM 4.5 GM VIAL IVPB ONE ×2 (01:18→09:04)
[2018-11-30] MEDS ORDERED: DEXTROSE 5%-WATER 100 ML IVPB ONE ×2 (01:18→09:04)
[2018-11-30] MEDS: KCL 10 MEQ IVPB 10 MEQ/100 ML INFUS.BAG IVPB SCH ×2 (01:29→03:49)
[2018-11-30] MEDS: PIPERACILLIN/TAZOB 4.5 GM 4.5 GM in DEXTROSE 5%-WATER 100 ML IVPB SCH ×2 (01:30→09:09)
[2018-11-30] MEDS ORDERED: CEFTRIAXONE 1 GM in DEXTROSE 5%-WATER - 50 ML IVPB SCH (02:00)
[2018-11-30 08:51] LABS: INR 1.27 (0.83-1.09)
[2018-11-30 09:02] LABS: ALBUMIN 2.6 g/dl (3.4-5.0); BILIRUBIN,DIRECT 2.5 mg/dL (0.0-0.2); BILIRUBIN,TOTAL 2.9 mg/dL (0.2-1); TOT PROT 5.9 g/dl (6.4-8.2)
--- NOTE | 2018-11-30 09:21 | PN ---
Progress Note, Physician - Current Medication List Current Medications: Active Medications Sodium Chloride (Normal Saline -) 1,000 mls @ 100 mls/hr IV ASDIR JUAN M Last Admin: 11/29/18 12:04 Dose: 100 mls/hr Piperacillin Sod/Tazobactam (Sod 4.5 gm/ Dextrose) 100 mls @ 200 mls/hr IVPB Q8H-IV JUAN M; Protocol Last Admin: 11/30/18 09:09 Dose: 200 mls/hr Sodium Chloride (Normal Saline -) 1,000 mls @ 50 mls/hr IV ASDIR JUAN M Stop: 11/30/18 16:37 Last Admin: 11/29/18 18:48 Dose: Not Given - Objective Vital Signs: Vital Signs Temperature 98 F 11/30/18 08:07 Pulse Rate 79 11/30/18 08:07 Respiratory Rate 20 11/30/18 08:07 Blood Pressure 103/57 L 11/30/18 08:07 O2 Sat by Pulse Oximetry (%) 99 11/29/18 21:00 Labs: CBC, BMP 11/29/18 19:00 11/29/18 19:00 INR, PTT INR 1.27 (0.83-1.09) H 11/30/18 07:40
[2018-11-30 09:25] LABS: PH,URINE 6.5 (5.0-8.0); URINE APPEARANCE CLEAR; URINE BILIRUBIN NEGATIVE (NEGATIVE); URINE COLOR YELLOW; URINE GLUCOSE (UA) NEGATIVE (NEGATIVE); URINE KETONE NEGATIVE (NEGATIVE); URINE LEUK ESTERASE 1+ (NEGATIVE); URINE NITRITE NEGATIVE (NEGATIVE); URINE PROTEIN NEGATIVE (NEGATIVE)
--- NOTE | 2018-11-30 09:52 | ECHO ---
Name: JAMA AUGUST Exam:Adult Echocardiogram Study Date: 11/29/2018 04:05 PM Age: 23 yrs Reason For Study: SOB 14 WKS TOPONIN .11 Height: 60 in Weight: 196 lb BSA: 1.9 m2 Left Ventricle Left ventricular systolic function is normal. Ejection Fraction = 55-60%. The transmitral spectral Do ppler flow pattern is normal for age. Right Ventricle The right ventricle is normal in size and function. Atria Normal left and right atrial size and function. Mitral Valve The mitral valve is normal in structure and function. There is no mitral valve stenosis. There is mil d mitral regurgitation. Tricuspid Valve The tricuspid valve is normal in structure and function. There is mild tricuspid regurgitation. Right ventricular systolic pressure is normal. Aortic Valve The aortic valve opens well. No hemodynamically significant valvular aortic stenosis. No aortic regur gitation is present. Pulmonic Valve The pulmonic valve is not well seen, but is grossly normal. There is no pulmonic valvular stenosis. T race pulmonic valvular regurgitation. Great Vessels The aortic root is normal size. Pericardium/Pleura There is no pericardial effusion. Interpretation Summary Left ventricular systolic function is normal. Ejection Fraction = 55-60%. The right ventricle is normal in size and function. There is mild mitral regurgitation. There is mild tricuspid regurgitation. Right ventricular systolic pressure is normal. There is no pericardial effusion. MD Jamison *Eleazar 11/30/2018 09:52 AM
--- NOTE | 2018-11-30 10:20 | PN ---
Progress Note, Physician Chief Complaint: seen and examined She denies CP, SOB. Echo- normal LV/ RV fx, no pericardial effusion History of Present Illness: MRI w/ hepatosplenomegaly, she is running low grade fever, platelets are low. Being seen by ID, OB and GI. Transfer to tertiary care center is pending. BP is low normal but stable. - Current Medication List Current Medications: Active Medications Sodium Chloride (Normal Saline -) 1,000 mls @ 100 mls/hr IV ASDIR JUAN M Last Admin: 11/29/18 12:04 Dose: 100 mls/hr Piperacillin Sod/Tazobactam (Sod 4.5 gm/ Dextrose) 100 mls @ 200 mls/hr IVPB Q8H-IV JUAN M; Protocol Last Admin: 11/30/18 09:09 Dose: 200 mls/hr Sodium Chloride (Normal Saline -) 1,000 mls @ 50 mls/hr IV ASDIR JUAN M Stop: 11/30/18 16:37 Last Admin: 11/29/18 18:48 Dose: Not Given - Objective Vital Signs: Vital Signs Temperature 98 F 11/30/18 08:07 Pulse Rate 79 11/30/18 08:07 Respiratory Rate 20 11/30/18 08:07 Blood Pressure 103/57 L 11/30/18 08:07 O2 Sat by Pulse Oximetry (%) 99 11/29/18 21:00 Constitutional: Yes: No Distress, Calm Eyes: Yes: Conjunctiva Clear Cardiovascular: Yes: Regular Rate and Rhythm Respiratory: Yes: Other (no wheezing or rales) Gastrointestinal: Yes: Soft (no rebound or guarding tenderness) Edema: No Neurological: Yes: Alert, Oriented Labs: CBC, BMP 11/29/18 19:00 11/29/18 19:00 INR, PTT INR 1.27 (0.83-1.09) H 11/30/18 07:40 - ....Imaging Other: Other (Echo: normal biV fx; mild MR/TR) Assessment/Plan Assessment/Plan EKG: sinus tachycardia, no ischemic changes 23 y/o F, at 13 weeks , presents to the ED c/o of fevers, chills, chest pain, borderline/equivoval TnI, elevated LFTs, found to have hepatosplenomegaly. Elevated trop, tachycardia: - denies chest pain currently, noted to have pain reproducible on palpation - likely MSK, now resolved - sinus tachycardia likely in setting of fever, pain, now also resolved. - elevated trop <0.02 -> 0.11, indeterminate range, in setting of infection with no ischemic changes on EKG. unlikely ACS, more consistent with demand in setting of infection. Echo showed normal biV function with no pericardial effusion and no sig PHTN. - TnI now normalized. 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
[2018-11-30 11:19] LABS: ALBUMIN 2.7 g/dl (3.4-5.0); BLOOD UREA NITROGEN 3.1 mg/dL (7-18); CALCIUM 8.2 mg/dL (8.5-10.1); CREATININE 0.6 mg/dL (0.55-1.3); MAGNESIUM 2.3 mg/dL (1.8-2.4); POTASSIUM 3.4 mmol/L (3.5-5.1); TOT PROT 6.4 g/dl (6.4-8.2)
[2018-11-30 11:20] LABS: BASO % 0.3 % (0-2.0); EOS % 0.3 % (0-4.5); HEMATOCRIT 31.4 % (32.4-45.2); HEMOGLOBIN 10.7 GM/dL (10.7-15.3); LYMPH % 14.5 % (8-40); MCH 26.9 pg (25.7-33.7); MEAN CELL VOLUME 79.1 fl (80-96); MEAN PLT VOLUME 10.2 fl (7.5-11.1); MONO % 6.4 % (3.8-10.2); NEUT % 78.5 % (42.8-82.8); PLATELET COUNT 109 K/MM3 (134-434); RBC 3.97 M/mm3 (3.60-5.2); RETICULOCYTES 1.29 % (0.5-1.5)
[2018-11-30] MEDS: SODIUM CHLORIDE 1,000 ML IV SCH (11:38)
[2018-11-30 11:39] VITALS: BP 127/62; PULSE 96; TEMP 100.4
--- NOTE | 2018-11-30 12:14 | PN ---
Physical Exam: SUBJECTIVE: Patient seen and examined OBJECTIVE: Vital Signs Period Temp Pulse Resp BP Sys/Sebastian Pulse Ox Last 24 Hr 97.6 F-100.4 F 73-102 20-22 90-131/45-63 99 GENERAL: The patient is awake, alert, and fully oriented, in no acute distress. HEAD: Normal with no signs of trauma. EYES: PERRL, extraocular movements intact, sclera anicteric, conjunctiva clear. No ptosis. ENT: Ears normal, nares patent, oropharynx clear without exudates, moist mucous membranes. NECK: Trachea midline, full range of motion, supple. LUNGS: Breath sounds equal, clear to auscultation bilaterally, no wheezes, no crackles, no accessory muscle use. HEART: Regular rate and rhythm, S1, S2 without murmur, rub or gallop. ABDOMEN: Soft, tender to RUQ and pelvic area, normoactive bowel sounds, no guarding, no rebound. 13 weeks IUP. + linea mary ann noted EXTREMITIES: 2+ pulses, warm, well-perfused, no edema. NEUROLOGICAL: Cranial nerves II through XII grossly intact. Normal speech, gait not observed. PSYCH: Normal mood, normal affect. SKIN: Warm, dry, normal turgor, no rashes or lesions noted Laboratory Results - last 24 hr 11/29/18 11/29/18 11/29/18 06:15 12:15 19:00 WBC RBC Hgb Hct MCV MCH MCHC RDW Plt Count MPV Absolute Neuts (auto) Neutrophils % Lymphocytes % Monocytes % Eosinophils % Basophils % Nucleated RBC % Retic Count PT with INR 17.10 H INR 1.44 H D-Dimer Sodium 138 Potassium 3.5 Chloride 110 H Carbon Dioxide 20 L Anion Gap 9 BUN 3.5 L Creatinine 0.7 Est GFR (CKD-EPI)AfAm 142.54 Est GFR (CKD-EPI)NonAf 122.98 Random Glucose 113 H Calcium 7.1 L Magnesium 1.3 L Total Bilirubin 1.9 H Direct Bilirubin 0.9 H AST 136 H ALT 100 H Alkaline Phosphatase 117 LD Total Creatine Kinase Troponin I 0.11 H B-Natriuretic Peptide Total Protein 6.6 Albumin 2.8 L Total Amylase 31 Lipase 87 TSH 1.20 Urine Color Urine Appearance Urine pH Ur Specific Anderson Urine Protein Urine Glucose (UA) Urine Ketones Urine Blood Urine Nitrite Urine Bilirubin Urine Urobilinogen Ur Leukocyte Esterase Opiates Screen Negative Methadone Screen Negative Barbiturate Screen Negative Phencyclidine Screen Negative Ur Amphetamines Screen Negative MDMA (Ecstasy) Screen Negative Benzodiazepines Screen Negative Cocaine Screen Negative U Marijuana (THC) Screen Negative 11/29/18 11/29/18 11/29/18 19:00 19:00 19:00 WBC 3.5 L RBC 4.04 Hgb 10.8 Hct 32.0 L MCV 79.2 L MCH 26.7 MCHC 33.7 RDW 16.1 H Plt Count 105 L MPV 10.4 Absolute Neuts (auto) 3.0 Neutrophils % 86.1 H Lymphocytes % 10.8 D Monocytes % 2.9 L Eosinophils % 0.0 Basophils % 0.2 Nucleated RBC % 0 Retic Count 1.15 PT with INR INR D-Dimer Sodium 140 Potassium 3.1 L Chloride 106 Carbon Dioxide 25 Anion Gap 9 BUN 4.3 L Creatinine 0.6 Est GFR (CKD-EPI)AfAm 149.95 Est GFR (CKD-EPI)NonAf 129.38 Random Glucose 85 Calcium 7.8 L Magnesium 1.7 L Total Bilirubin 2.6 H Direct Bilirubin AST 117 H ALT 107 H Alkaline Phosphatase 102 LD Total 269 H Creatine Kinase Troponin I B-Natriuretic Peptide Total Protein 6.1 L Albumin 2.7 L Total Amylase Lipase TSH Urine Color Urine Appearance Urine pH Ur Specific Anderson Urine Protein Urine Glucose (UA) Urine Ketones Urine Blood Urine Nitrite Urine Bilirubin Urine Urobilinogen Ur Leukocyte Esterase Opiates Screen Methadone Screen Barbiturate Screen Phencyclidine Screen Ur Amphetamines Screen MDMA (Ecstasy) Screen Benzodiazepines Screen Cocaine Screen U Marijuana (THC) Screen 11/29/18 11/29/18 11/29/18 19:00 19:00 19:00 WBC RBC Hgb Hct MCV MCH MCHC RDW Plt Count MPV Absolute Neuts (auto) Neutrophils % Lymphocytes % Monocytes % Eosinophils % Basophils % Nucleated RBC % Retic Count PT with INR INR D-Dimer 20983 H Sodium Potassium Chloride Carbon Dioxide Anion Gap BUN Creatinine Est GFR (CKD-EPI)AfAm Est GFR (CKD-EPI)NonAf Random Glucose Calcium Magnesium Total Bilirubin 2.8 H Direct Bilirubin 2.3 H AST ALT Alkaline Phosphatase LD Total Creatine Kinase Troponin I B-Natriuretic Peptide 989.1 H Total Protein Albumin Total Amylase 28 Lipase 62 L TSH 1.48 Urine Color Urine Appearance Urine pH Ur Specific Anderson Urine Protein Urine Glucose (UA) Urine Ketones Urine Blood Urine Nitrite Urine Bilirubin Urine Urobilinogen Ur Leukocyte Esterase Opiates Screen Methadone Screen Barbiturate Screen Phencyclidine Screen Ur Amphetamines Screen MDMA (Ecstasy) Screen Benzodiazepines Screen Cocaine Screen U Marijuana (THC) Screen 11/29/18 11/29/18 11/30/18 19:00 19:00 05:33 WBC RBC Hgb Hct MCV MCH MCHC RDW Plt Count MPV Absolute Neuts (auto) Neutrophils % Lymphocytes % Monocytes % Eosinophils % Basophils % Nucleated RBC % Retic Count PT with INR INR D-Dimer Sodium Potassium Chloride Carbon Dioxide Anion Gap BUN Creatinine Est GFR (CKD-EPI)AfAm Est GFR (CKD-EPI)NonAf Random Glucose Calcium Magnesium Total Bilirubin 2.7 H Direct Bilirubin 2.3 H AST 120 H ALT 112 H Alkaline Phosphatase 105 LD Total Creatine Kinase Troponin I 0.05 B-Natriuretic Peptide Total Protein 6.3 L Albumin 2.8 L Total Amylase Lipase TSH Urine Color Yellow Urine Appearance Clear Urine pH 6.5 Ur Specific Anderson 1.005 L Urine Protein Negative Urine Glucose (UA) Negative Urine Ketones Negative Urine Blood 1+ H Urine Nitrite Negative Urine Bilirubin Negative Urine Urobilinogen 1.0 Ur Leukocyte Esterase 1+ H Opiates Screen Methadone Screen Barbiturate Screen Phencyclidine Screen Ur Amphetamines Screen MDMA (Ecstasy) Screen Benzodiazepines Screen Cocaine Screen U Marijuana (THC) Screen 11/30/18 11/30/18 11/30/18 07:40 07:40 07:40 WBC RBC Hgb Hct MCV MCH MCHC RDW Plt Count MPV Absolute Neuts (auto) Neutrophils % Lymphocytes % Monocytes % Eosinophils % Basophils % Nucleated RBC % Retic Count PT with INR 15.00 H INR 1.27 H D-Dimer Sodium Potassium Chloride Carbon Dioxide Anion Gap BUN Creatinine Est GFR (CKD-EPI)AfAm Est GFR (CKD-EPI)NonAf Random Glucose Calcium Magnesium Total Bilirubin 2.9 H Direct Bilirubin 2.5 H AST 111 H ALT 114 H Alkaline Phosphatase 106 LD Total Creatine Kinase 144 Troponin I B-Natriuretic Peptide Total Protein 5.9 L Albumin 2.6 L Total Amylase Lipase TSH Urine Color Urine Appearance Urine pH Ur Specific Anderson Urine Protein Urine Glucose (UA) Urine Ketones Urine Blood Urine Nitrite Urine Bilirubin Urine Urobilinogen Ur Leukocyte Esterase Opiates Screen Methadone Screen Barbiturate Screen Phencyclidine Screen Ur Amphetamines Screen MDMA (Ecstasy) Screen Benzodiazepines Screen Cocaine Screen U Marijuana (THC) Screen 11/30/18 11/30/18 11/30/18 07:40 10:35 10:35 WBC 5.0 RBC 3.97 Hgb 10.7 Hct 31.4 L MCV 79.1 L MCH 26.9 MCHC 34.0 RDW 16.0 H Plt Count 109 L MPV 10.2 Absolute Neuts (auto) 3.9 Neutrophils % 78.5 Lymphocytes % 14.5 D Monocytes % 6.4 D Eosinophils % 0.3 D Basophils % 0.3 Nucleated RBC % 0 Retic Count 1.29 D PT with INR Cancelled INR Cancelled D-Dimer Sodium 139 Potassium 3.4 L Chloride 107 Carbon Dioxide 24 Anion Gap 8 BUN 3.1 L Creatinine 0.6 Est GFR (CKD-EPI)AfAm 149.95 Est GFR (CKD-EPI)NonAf 129.38 Random Glucose 90 Calcium 8.2 L Magnesium 2.3 Total Bilirubin 3.0 H Direct Bilirubin AST 122 H ALT 127 H Alkaline Phosphatase 112 LD Total 279 H Creatine Kinase Troponin I B-Natriuretic Peptide Total Protein 6.4 Albumin 2.7 L Total Amylase 25 Lipase 66 L TSH Urine Color Urine Appearance Urine pH Ur Specific Anderson Urine Protein Urine Glucose (UA) Urine Ketones Urine Blood Urine Nitrite Urine Bilirubin Urine Urobilinogen Ur Leukocyte Esterase Opiates Screen Methadone Screen Barbiturate Screen Phencyclidine Screen Ur Amphetamines Screen MDMA (Ecstasy) Screen Benzodiazepines Screen Cocaine Screen U Marijuana (THC) Screen Active Medications Generic Name Dose Route Start Last Admin Trade Name Freq PRN Reason Stop Dose Admin Sodium Chloride 1,000 mls @ 100 mls/hr 11/29/18 04:15 11/30/18 11:38 Normal Saline - IV 100 mls/hr ASDIR JUAN M Administration Piperacillin Sod/Tazobactam 100 mls @ 200 mls/hr 11/29/18 12:45 11/30/18 09: 09 Sod 4.5 gm/ Dextrose IVPB 200 mls/hr Q8H-IV JUAN M Administration Protocol Sodium Chloride 1,000 mls @ 50 mls/hr 11/29/18 16:45 11/29/18 18:48 Normal Saline - IV 11/30/18 16:37 Not Given ASDIR JUAN M ASSESSMENT/PLAN: 23 y/o female, 13 weeks IUP pending transfer to tertiary care center for further managment. Running low grade fever presently with increasing abd pain and vaginal spotting. MRI w/ hepatosplenomegaly, she is running low grade fever , platelets are low. Being seen by ID, OB and GI, cardiology and critical care Transfer to tertiary [facility] is pending. Hepatatis serologies, viral studies, tick borne panel and infectious work up all in process. Problem List - Problems (1) Thrombocytopenia Code(s): D69.6 - THROMBOCYTOPENIA, UNSPECIFIED (2) Hepatomegaly Code(s): R16.0 - HEPATOMEGALY, NOT ELSEWHERE CLASSIFIED (3) Splenomegaly Code(s): R16.1 - SPLENOMEGALY, NOT ELSEWHERE CLASSIFIED (4) Leukopenia Code(s): D72.819 - DECREASED WHITE BLOOD CELL COUNT, UNSPECIFIED (5) INR (international normal ratio) abnormal Code(s): R79.1 - ABNORMAL COAGULATION PROFILE (6) Vaginal bleeding before 22 weeks gestation Code(s): O20.9 - HEMORRHAGE IN EARLY , UNSPECIFIED (7) Abnormal liver function test Code(s): R94.5 - ABNORMAL RESULTS OF LIVER FUNCTION STUDIES (8) Fever Code(s): R50.9 - FEVER, UNSPECIFIED Qualifiers: Fever type: unspecified Qualified Code(s): R50.9 - Fever, unspecified (9) Abdominal pain affecting Code(s): O26.899 - OTH RELATED CONDITIONS, UNSPECIFIED TRIMESTER; R10.9 - UNSPECIFIED ABDOMINAL PAIN (10) First-trimester bleeding Code(s): O20.9 - HEMORRHAGE IN EARLY , UNSPECIFIED (11) Heartburn during in third trimester Code(s): O26.893 - OTH RELATED CONDITIONS, THIRD TRIMESTER; R12 - HEARTBURN Visit type - Emergency Visit Emergency Visit: Yes ED Registration Date: 11/28/18 Care time: The patient presented to the Emergency Department on the above date and was hospitalized for further evaluation of their emergent condition. - New Patient This patient is new to me today: No - Critical Care Critical Care patient: No - Discharge Referral Referred to [facility] No
--- NOTE | 2018-11-30 12:23 | HOSP ---
Physical Examination Vital Signs: Vital Signs Temperature 100.4 F H 11/30/18 11:39 Pulse Rate 96 H 11/30/18 11:39 Respiratory Rate 20 11/30/18 11:39 Blood Pressure 127/62 11/30/18 11:39 O2 Sat by Pulse Oximetry (%) 99 11/29/18 21:00 Labs: CBC, BMP 11/30/18 10:35 11/30/18 10:35 Hospitalist Encounter Assessment: Received confirmation of a bed available at [facility] floor 6S. Transport by [facility]. Report endorsed to Dr Montelongo & Dr del valle at [facility]. Patient hemodynamically stable presetly, IVF NS running. RN to RN report endorsed. Appreciate all involved in the care of this patient
[2018-11-30 16:33] LABS: EPI CELLS 0.9 /HPF (0-5/HPF); HYALINE CASTS 0 /lpf (0-8); URINE BACTERIA 1.5 /hpf (NEGATIVE); URINE RBC 0.7 /hpf (0-4)
[2018-12-03 14:10] LABS: CMV IgM < 30.0 AU/mL (0.0-29.9)
[2018-12-03 16:09] LABS: E.chaff HME IgG Negative (Neg:<1:64)
[2018-12-03 20:10] LABS: HEP B CORE AB, TOT Negative (Negative)
[2018-12-04 18:08] LABS: BABESIA MICROTI ANTIBODY IGG <1:10 (Neg:<1:10); BABESIA MICROTI ANTIBODY IGM <1:10 (Neg:<1:10)
== END 2018-11-30 12:12 | disposition short-term general hospital (02) | DRG 566 ==
LOC: JER 19:56 → JERBED 23:10 → J5S 11-29 09:54
PROVIDERS: ADMIT Internal Medicine; ATTEND Nurse Practitioner Acute Care
DX: O98.811 Other maternal infectious and parasitic diseases complicating pregnancy, first trimester (principal); A41.9 Sepsis, unspecified organism; O23.01 Infections of kidney in pregnancy, first trimester; Z3A.13 13 weeks gestation of pregnancy; O26.891 Other specified pregnancy related conditions, first trimester; E87.6 Hypokalemia; O99.281 Endocrine, nutritional and metabolic diseases complicating pregnancy, first trimester; E05.90 Thyrotoxicosis, unspecified without thyrotoxic crisis or storm; E66.9 Obesity, unspecified; Z68.38 Body mass index [BMI] 38.0-38.9, adult; D72.819 Decreased white blood cell count, unspecified; R79.1 Abnormal coagulation profile; O20.9 Hemorrhage in early pregnancy, unspecified; R94.5 Abnormal results of liver function studies; R07.9 Chest pain, unspecified; R00.0 Tachycardia, unspecified; O99.111 Other diseases of the blood and blood-forming organs and certain disorders involving the immune mechanism complicating pregnancy, first trimester; R11.2 Nausea with vomiting, unspecified; R16.2 Hepatomegaly with splenomegaly, not elsewhere classified
CPT/HCPCS: 36415; 71275-TC; 72195-TC; 74181-TC; 76705-TC; 80053; 80076; 80307; 81003; 82150; 82247; 82248; 82550; 82553; 82930; 83010; 83605; 83615; 83690; 83735; 83880; 84443; 84484; 84702; 85025; 85044; 85379; 85610; 85730; 86618; 86644; 86645; 86666; 86704; 86706; 86707; 86708; 86709; 86753; 87040; 87086; 87207; 87340; 87389; 87491; 87497; 87591; 87799; 93005; 93010; 93306-TC; 93970-TC; 99284-25; J0131; J7030